=== PATIENT | female | born 1970 | race Caucasian/White ===

== ENCOUNTER 2020-02-26 11:45 | Outpatient (CLI) | payer OTHER, SELFPAY ==
--- NOTE | ~2020-02-26 | XR_ITS ---
EXAMINATION: XR elbow LT min 3V EXAM DATE: 02/26/2020 12:17 INDICATION: Left arm pain. TECHNIQUE: Left elbow frontal, lateral with flexion, and oblique projections obtained and reviewed. There is no prior study for comparison. FINDINGS: Left elbow anterior humeral line intact. Joint space is uniform. There are no acute frac tures or dislocations identified. There is no subcutaneous gas. The soft tissue is unremarkable. There are no radiopaque foreign bodies. IMPRESSION: 1. Unremarkable XR elbow LT min 3V exam. Reviewed, dictated and finalized at location B. ORK TECHNICAL ANALYST
--- NOTE | ~2020-02-26 | XR_ITS ---
EXAMINATION: XR shoulder LT min 2V DATE: 02/26/2020 12:17 INDICATION: Left shoulder pain. TECHNIQUE: 4 views of left shoulder were obtained. COMPARISON: Left shoulder radiographs 12/17/2017 FINDINGS: Bone alignment is normal. No fracture. Glenohumeral joint is normal. There is mild acromioc lavicular joint osteoarthrosis. IMPRESSION: 1. Mild left acromioclavicular joint osteoarthritis. Reviewed, dictated and finalized at location A. ER HAND
== END 2020-02-26 11:46 | disposition home or self-care (01) ==
LOC: ANHIMG 11:51
PROVIDERS: PCP Family Medicine; Visit Provider Physician Assistant
DX: M25.522 Pain in left elbow (principal); M19.012 Primary osteoarthritis, left shoulder; M32.9 Systemic lupus erythematosus, unspecified
CPT/HCPCS: 73030; 73080

== ENCOUNTER 2020-12-20 08:09 | Outpatient (CLI) | payer OTHER, SELFPAY ==
--- NOTE | ~2020-12-20 | MM_ITS ---
EXAMINATION: MM screening raymond BI w akilah HISTORY: Screening TECHNIQUE: Craniocaudal and mediolateral oblique 3-D tomosynthesis images were obtained and synthetic 2-D images were generated. CAD analysis was submitted and interpreted. COMPARISON: Comparison to multiple prior studies sequentially, with oldest reviewed study dated 01/05. BREAST PARENCHYMAL COMPOSITION: There are scattered areas of fibroglandular density. FINDINGS: There is no evidence of suspicious mass, calcification, or architectural distortion to sugg est malignancy in either breast. There has been no suspicious interval change. IMPRESSION: 1. No mammographic evidence of malignancy. 2. Recommend routine screening mammography in one year. BI-RADS Category 1: Negative Reviewed, dictated and finalized at location A.
== END 2020-12-20 08:10 | disposition home or self-care (01) ==
PROVIDERS: PCP Family Medicine; Visit Provider Obstetrics & Gynecology
DX: Z12.31 Encounter for screening mammogram for malignant neoplasm of breast (principal)
CPT/HCPCS: 77063; 77067

== ENCOUNTER → 2021-04-19 08:18 | Outpatient (CLI) | payer OTHER, SELFPAY ==
[2021-04-19 17:25] LABS: Influenza A QL RT-PCR Negative (Negative); Influenza B QL RT-PCR Negative (Negative); SARS-CoV-2 RNA PCR Positive
== END ==
PROVIDERS: PCP Family Medicine; Visit Provider Physician Assistant
DX: U07.1 COVID-19 (principal)
CPT/HCPCS: 87502; 87804; C9803; U0003; U0005

== ENCOUNTER 2021-09-28 10:39 | Emergency (ER) | payer OTHER, SELFPAY ==
[2021-09-28 10:50] VITALS: BP 147/64; PULSE 81; RESP 16; TEMP 36.3; O2SAT 99
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
== END 2021-09-28 11:07 | disposition home or self-care (01) ==
PROVIDERS: Emergency Provider Nurse Practitioner Family; PCP Family Medicine
DX: S05.02XA Injury of conjunctiva and corneal abrasion without foreign body, left eye, initial encounter (principal); W54.8XXA Other contact with dog, initial encounter; I10 Essential (primary) hypertension; J45.909 Unspecified asthma, uncomplicated; E11.9 Type 2 diabetes mellitus without complications; M32.9 Systemic lupus erythematosus, unspecified
CPT/HCPCS: 99213; A9270; G0463

== ENCOUNTER 2022-03-13 01:55 | Day surgery (SDC) | payer OTHER, SELFPAY ==
[2022-03-03 16:04] VITALS: BMI 27.2
[2022-03-13 11:23] VITALS: BP 138/68; PULSE 77; RESP 18; TEMP 36.2; O2SAT 100; BMI 27.0
[2022-03-13 11:42] LABS: Glucose Point of Care 91 mg/dl (65-105)
[2022-03-13] MEDS: LACTATED RINGERS 1,000 ML 150 ML IV CONT (11:43)
--- NOTE | 2022-03-13 11:45 | PM.HPGS ---
History of Present Illness History of Present Illness Consent: Risks, benefits, and alternatives have been discussed and questions answered. Patient agrees to proceed with procedure. Chief complaint: neoplasm screening, gerd Narrative: Mayda Petty is a 52 year old female Presents for colonoscopy and EGD. Patient desires neoplasia screening because of her age. Current weight appetite bowel movements are normal. She presents for neoplasia screening colonoscopy. Patient gives a long history of acid reflux disease and heartburn. She previously was followed by Dr. De Jesus. Has had several endoscopies many years ago. She was told that she had esophageal erosions. She has been maintained on Protonix 40mg p.o. daily or equivalent medications in the past. In general this is helped alleviate her symptoms however for the last 5 months has had substernal heartburn despite taking Protonix. Patient denies any dysphagia or weight loss. She has had no bleeding. Family history noncontributory. Review of Systems Review of Systems: Review of systems noncontributory. [facility] Past Medical History Medical History Obesity Family History Family History Father Diabetes mellitus Hypertension Family history of coronary artery disease Mother Diabetes mellitus Social History Social History Smoking status: Never smoker Second hand tobacco smoke exposure: No Alcohol intake: current Drinks per week: 1 Alcohol use details: rare Substance use: never Substance use type: does not use Living arrangements: with family Gender identity (if verbalized by the patient): Female Sexual Orientation (if Verbalized by the Patient): Straight or Heterosexual Spiritual care concerns: No Meds Home Medications and Allergies Home Medications Medication Instructions Recorded Confirmed Type azathioprine 50 mg tablet 50 mg PO BID 06/19/19 03/03/22 History hydroxychloroquine 200 mg tablet 200 mg PO BID 06/19/19 03/03/22 History fluticasone propionate 50 1 spray intranasal DAILY #18.2 mL 08/24/19 03/03/22 Rx mcg/actuation nasal spray,suspension albuterol sulfate 90 mcg/actuation 2 puff inhalation Q4H PRN 03/03/21 03/03/22 Rx aerosol inhaler (ProAir HFA) shortness of breath or wheezing #18 grams metformin 1,000 mg tablet 1,000 mg PO BID #180 tabs 06/04/21 03/03/22 Rx blood sugar diagnostic (Blood #100 ea 07/23/21 02/05/22 Rx Glucose Test strips) blood-glucose meter #1 ea 07/23/21 02/05/22 Rx lancets #200 ea 07/23/21 02/05/22 Rx albuterol sulfate 2.5 mg/3 mL 2.5 mg (3 mL) inhalation Q6H PRN 08/13/21 03/03/22 Rx (0.083 %) solution for nebulization shortness of breath or wheezing #180 mL pen needle, diabetic 29 gauge x #100 ea 08/13/21 02/05/22 Rx 1/2 (BD Ultra-Fine Original Pen Needle) montelukast 10 mg tablet 10 mg PO QPM #90 tabs 12/24/21 03/03/22 Rx semaglutide 1 mg/dose (4 mg/3 mL) 1 mg (0.75 mL) subcut WEEKLY #3 mL 12/24/21 03/03/22 Rx subcutaneous pen injector sodium,potassium,mag sulfates 17.5 See Rx Instructions PO .COMPLEX 02/16/22 Rx gram-3.13 gram-1.6 gram oral soln #354 mL (Suprep Bowel Prep Kit) losartan 25 mg tablet 12.5 mg PO DAILY #45 tabs 02/20/22 03/03/22 Rx duloxetine 60 mg capsule,delayed 60 mg PO DAILY 03/03/22 03/03/22 History release ondansetron 8 mg disintegrating 8 mg PO Q8H PRN nausea and 03/03/22 Rx tablet vomiting #18 tabs pantoprazole 40 mg tablet,delayed 40 mg PO DAILY 03/03/22 03/03/22 History release Allergies Allergy/AdvReac Type Severity Reaction Status Date / Time levofloxacin Allergy Unknown Hives Verified 03/03/22 16:02 nitrofurantoin Allergy Unknown Unknown Verified 03/03/22 16:02 Vital Signs Vital Signs - 24 hr 03/13/22 11:23 Temperature 97.2 F L Pulse Rate 77 Respirat
--- NOTE | 2022-03-13 12:14 | WPDANESEPPF ---
Anes - Initial Pre Proc Eval Procedure: Operation Date: 03/13/22 12:30 Proposed Procedures p Esophagogastroduodenoscopy&Screen Colon - Corey Burton MD Date/Time: 03/13/22 12:14 Surgeon: Corey Burton MD Pre Op Diagnosis: neoplasm screening, gerd Patient Data Age: 52 Gender: F Height: 1.68 m Weight: 75.9 kg Last Vital Signs Temp 97.2 F L 03/13/22 11:23 Pulse 77 03/13/22 11:23 Resp 18 03/13/22 11:23 BP 138/68 03/13/22 11:23 Pulse Ox 100 03/13/22 11:23 O2 Del Method Room Air 03/13/22 11:23 Allergies Allergy/AdvReac Type Severity Reaction Status Date / Time levofloxacin Allergy Unknown Hives Verified 03/03/22 16:02 nitrofurantoin Allergy Unknown Unknown Verified 03/03/22 16:02 Home Medications Medication Instructions Recorded Confirmed Type azathioprine 50 mg tablet 50 mg PO BID 06/19/19 03/03/22 History hydroxychloroquine 200 mg tablet 200 mg PO BID 06/19/19 03/03/22 History fluticasone propionate 50 1 spray intranasal DAILY #18.2 mL 08/24/19 03/03/22 Rx mcg/actuation nasal spray,suspension albuterol sulfate 90 mcg/actuation 2 puff inhalation Q4H PRN 03/03/21 03/03/22 Rx aerosol inhaler (ProAir HFA) shortness of breath or wheezing #18 grams metformin 1,000 mg tablet 1,000 mg PO BID #180 tabs 06/04/21 03/03/22 Rx blood sugar diagnostic (Blood #100 ea 07/23/21 02/05/22 Rx Glucose Test strips) blood-glucose meter #1 ea 07/23/21 02/05/22 Rx lancets #200 ea 07/23/21 02/05/22 Rx albuterol sulfate 2.5 mg/3 mL 2.5 mg (3 mL) inhalation Q6H PRN 08/13/21 03/03/22 Rx (0.083 %) solution for nebulization shortness of breath or wheezing #180 mL pen needle, diabetic 29 gauge x #100 ea 08/13/21 02/05/22 Rx 1/2 (BD Ultra-Fine Original Pen Needle) montelukast 10 mg tablet 10 mg PO QPM #90 tabs 12/24/21 03/03/22 Rx semaglutide 1 mg/dose (4 mg/3 mL) 1 mg (0.75 mL) subcut WEEKLY #3 mL 12/24/21 03/03/22 Rx subcutaneous pen injector sodium,potassium,mag sulfates 17.5 See Rx Instructions PO .COMPLEX 02/16/22 Rx gram-3.13 gram-1.6 gram oral soln #354 mL (Suprep Bowel Prep Kit) losartan 25 mg tablet 12.5 mg PO DAILY #45 tabs 02/20/22 03/03/22 Rx duloxetine 60 mg capsule,delayed 60 mg PO DAILY 03/03/22 03/03/22 History release ondansetron 8 mg disintegrating 8 mg PO Q8H PRN nausea and 03/03/22 Rx tablet vomiting #18 tabs pantoprazole 40 mg tablet,delayed 40 mg PO DAILY 03/03/22 03/03/22 History release Laboratory Tests 03/13/22 11:40 POC Capillary Glucose 91 mg/dl mg/dl (65-105) Patient hx anesthesia problems: none Family hx anesthesia problems: none Results Review: All pre-operative results and documents have been reviewed as part of the pre-operative evaluation. [facility] Past Medical History Medical History Obesity Family History Family History Father Diabetes mellitus Hypertension Family history of coronary artery disease Mother Diabetes mellitus Social History Social History Smoking status: Never smoker Second hand tobacco smoke exposure: No Alcohol intake: current Drinks per week: 1 Alcohol use details: rare Substance use: never Substance use type: does not use Living arrangements: with family Gender identity (if verbalized by the patient): Female Sexual Orientation (if Verbalized by the Patient): Straight or Heterosexual Spiritual care concerns: No Anes - Eval Final PreProcedure Day of Procedure 03/13/22 12:14 Patient weight: normal Heart: regular rate and rhythm Lungs: clear to auscultation Airway: Mallampati scale class II Neurological: alert and oriented Last oral intake: >/= 8 hours ASA classification: II Emergent: no Anesthetic plan: proceed Anesthesia type and monitoring: general GIVS and standard monitoring
[2022-03-13] MEDS: SIMETHICONE ORAL SUSPENSION 20 MG/0.3 ML 30 ML BOTTLE 0.6 ML IRRIGATION (12:48)
--- NOTE | 2022-03-13 12:54 | SUR.OPER ---
EGD started at 1234 and ended at 1236. Colonoscopy started at 1243 and ended at 1253.
[2022-03-13 12:59] VITALS: BP 120/66; PULSE 91; RESP 22; O2SAT 100
[2022-03-13 13:09] VITALS: BP 135/79; PULSE 82; RESP 20; O2SAT 99
[2022-03-13 13:19] VITALS: BP 135/81; PULSE 68; RESP 20; O2SAT 100
== END 2022-03-13 13:27 | disposition home or self-care (01) ==
PROVIDERS: PCP Family Medicine; Visit Provider Internal Medicine Gastroenterology
PROC: 0DJ08ZZ Inspection of Upper Intestinal Tract, Via Natural or Artificial Opening Endoscopic (ICD-10-PCS; CPT 43235; principal; 2022-03-13 12:30)
DX: Z12.11 Encounter for screening for malignant neoplasm of colon (principal); K64.8 Other hemorrhoids; K21.9 Gastro-esophageal reflux disease without esophagitis
CPT/HCPCS: 43239; 45378; 82948; 87081; J2704; J7120

== ENCOUNTER 2022-08-27 17:53 | Emergency (ER) | payer OTHER, SELFPAY ==
[2022-08-27 18:01] VITALS: BP 159/73; PULSE 90; RESP 16; TEMP 37.3; O2SAT 100
[2022-08-27 18:03] VITALS: BP 159/73; PULSE 90; RESP 16; TEMP 37.3; O2SAT 100
--- NOTE | 2022-08-27 18:25 | ED.SKABFB ---
HPI - Skin/Abscess/Foreign Bdy General Chief complaint: Skin/Abscess/Foreign Body Stated complaint: Insect stuck under skin on upper left back Source: patient and RN notes reviewed History of Present Illness HPI narrative: 52 year female presents to urgent care with complaints of a tick bite to her left upper back. Patient is concerned that a tick could still be in her skin. Patient states they noticed this take about 30 minutes prior to arrival. Patient's removed the tick TOBACCO DIPPER, which pt brought in. Pt has no other complaints. Related Data Home Medications Medication Instructions Recorded Confirmed azathioprine 50 mg tablet 50 mg PO BID 06/19/19 08/27/22 hydroxychloroquine 200 mg tablet 200 mg PO BID 06/19/19 08/27/22 duloxetine 60 mg capsule,delayed 60 mg PO DAILY 03/03/22 08/27/22 release pantoprazole 40 mg tablet,delayed 40 mg PO DAILY 03/03/22 08/27/22 release Allergies Allergy/AdvReac Type Severity Reaction Status Date / Time levofloxacin Allergy Intermediate Hives Verified 08/27/22 18:01 nitrofurantoin Allergy Intermediate Rash Verified 08/27/22 18:01 Review of Systems Review of Systems: CONSTITUTIONAL: Denies fever, chills, or sweats. EYES: Denies visual changes, redness, or discharge. ENT: Denies otalgia and sore throat CARDIOVASCULAR: Denies chest pain, palpitations, or edema. RESPIRATORY: Denies cough or dyspnea. GASTROINTESTINAL: Denies abdominal pain, nausea, vomiting, or diarrhea. GENITOURINARY: Denies dysuria or hematuria. SKIN: tick bite to left upper back MUSCULOSKELETAL: Denies back pain, joint pain, or myalgia. NEUROLOGIC: Denies headache, numbness, or weakness. Pertinent positives per HPI. [facility] Past Medical History Medical History Obesity Family History Family History Father Diabetes mellitus Hypertension Family history of coronary artery disease Mother Diabetes mellitus Social History Social History (Updated 03/23/22 @ 15:01 by Thuy Castro) Smoking status: Never smoker Second hand tobacco smoke exposure: No Alcohol intake: current Drinks per week: 1 Alcohol use details: rare Substance use: never Substance use type: does not use Living arrangements: with family Occupation/Education: occupation Gender identity (if verbalized by the patient): Female Sexual Orientation (if Verbalized by the Patient): Straight or Heterosexual Spiritual care concerns: No Comments At the time of my signature, I reviewed and agree with the nursing past medical, surgical, social, and family history. There is no relevant family history pertinent to the patient complaint. Exam Narrative: GENERAL: This is a well-nourished, well-developed patient, in no apparent distress. HEAD: normocephalic, atraumatic. EYES: Sclera clear/white. Vision is grossly intact. EARS: External ears normal, auditory canals clear and without drainage. Hearing grossly intact. NOSE: External nose normal with no obvious nasal discharge, nares without redness, no rhinorrhea. THROAT: Mucous membranes moist, posterior pharynx clear. NECK: Neck supple, non-tender without lymphadenopathy, masses or thyromegaly. CARDIOVASCULAR: Regular rate RESPIRATORY: No respiratory distress SKIN: 1 cm area of erythremic scab to left upper back NEURO: awake, alert, and oriented to person, place and time. There were no obvious focal neurologic abnormalities. BACK: Nontender without deformity or crepitance. No flank tenderness. Course Course Level of Care: Express Care Visit Vital Signs Vital signs: Vital Signs Temperature 99.1 F 08/27/22 18:01 Pulse Rate 90 08/27/22 18:01 Respiratory Rate 16 08/27/22 18:01 Blood Pressure 159/73 H 08/27/22 18:01 Pulse Oximetry 100 08/27/22 18:01 Oxygen Delivery Room Air 08/27/22 18:01 Temperature 99.1 F 08/27/22
== END 2022-08-27 18:32 | disposition home or self-care (01) ==
PROVIDERS: Emergency Provider Nurse Practitioner Family; PCP Family Medicine
DX: S20.462A Insect bite (nonvenomous) of left back wall of thorax, initial encounter (principal); W57.XXXA Bitten or stung by nonvenomous insect and other nonvenomous arthropods, initial encounter; E66.9 Obesity, unspecified; Z68.28 Body mass index [BMI] 28.0-28.9, adult
CPT/HCPCS: 99213; G0463

== ENCOUNTER 2023-02-10 15:41 | Outpatient (CLI) | payer OTHER, SELFPAY ==
--- NOTE | ~2023-02-10 | MM_ITS ---
EXAMINATION: MM screening raymond BI w akilah HISTORY: Screening TECHNIQUE: Craniocaudal and mediolateral oblique 3-D tomosynthesis images were obtained and synthetic 2-D images were generated. CAD analysis was submitted and interpreted. COMPARISON: Comparison to multiple prior studies sequentially, with oldest reviewed study dated 08/22. BREAST PARENCHYMAL COMPOSITION: The breasts are almost entirely fatty. FINDINGS: There is no evidence of suspicious mass, calcification, or architectural distortion to sugg est malignancy in either breast. There has been no suspicious interval change. IMPRESSION: 1. No mammographic evidence of malignancy. 2. Recommend routine screening mammography in one year. BI-RADS Category 1: Negative Reviewed, dictated and finalized at location A. NICAL MAINTENANCE TECHNICIAN
== END 2023-02-10 15:42 | disposition home or self-care (01) ==
LOC: ANHIMG 15:43
PROVIDERS: PCP Family Medicine; Visit Provider Obstetrics & Gynecology
DX: Z12.31 Encounter for screening mammogram for malignant neoplasm of breast (principal)
CPT/HCPCS: 77063; 77067

== ENCOUNTER 2023-03-23 17:06 | Outpatient (CLI) | payer OTHER, SELFPAY ==
[2023-03-23 21:45] LABS: Appearance Urine Clear (Clear); Bilirubin Urine Negative (Negative); Blood Urine Negative (Negative); Color Urine Yellow (Yellow); Glucose Urine UA Negative (Negative); Ketones Urine Negative (Negative); Leukocyte Esterase Ur Negative LEU/UL (NEGATIVE); Nitrate Urine Negative (Negative); Protein Urine Negative (Negative); Specific Grav Ur 1.003 (1.001-1.035); Urobilinogen Urine 0.2 mg/dL (<2.0); pH Urine 6.5 (5.0-9.0)
[2023-03-23 21:51] LABS: Add Urine Microscopic? NO
== END 2023-03-23 17:07 | disposition home or self-care (01) ==
LOC: ANHLAB 17:07
PROVIDERS: PCP Family Medicine; Visit Provider Physician Assistant
DX: N39.0 Urinary tract infection, site not specified (principal); R30.0 Dysuria
CPT/HCPCS: 81003; 87086; 87088

== ENCOUNTER 2024-10-17 13:54 | Outpatient (CLI) | payer OTHER, SELFPAY ==
--- OUTSIDE RECORDS SUMMARY | 2024-10-17 14:01 | XMS_ITS | Clinical Summary ---
Author Organization [facility] Address [address] [place] [address] Phone Care Team Providers Care Field Appraiser Name Role Phone Mitesh Rincon MD Primary Care Provider Allergies Active Allergy Reactions Criticality Noted Date Comments Levofloxacin Hives High 02/09/2019 Medications metFORMIN (GLUCOPHAGE) 1,000 mg tablet Take 1,000 mg by mouth 2 times daily with meals. Active DULoxetine (CYMBALTA) 60 mg Capsule, Delayed Release(E.C.) Take 60 mg by mouth daily. Active hydroxychloroqu ine (PLAQUENIL) 200 mg tablet Take 200 mg by mouth 2 times daily. Active losartan (COZAAR) 25 mg tablet Take 25 mg by mouth daily. Taking 1/2 tab Active montelukast (SINGULAIR) 10 mg tablet Take 10 mg by mouth daily. Active ondansetron (ZOFRAN) 8 mg Tablet Take 8 mg by mouth every 8 hours as needed for Nausea/Emesis. Active pantoprazole (PROTONIX) 40 mg Tablet, Delayed Release (E.C.) Take 40 mg by mouth daily. Active fluticasone propionate (FLONASE) 50 mcg/spray [place], Suspension nasal inhaler Administer 50 mcg in each nostril daily. 8 Active albuterol HFA 90 mcg inhaler Take 2 Puffs by inhalation every 6 hours as needed for Shortness of Breath. Active azaTHIOprine (IMURAN) 50 mg tablet Take 1 Tablet by mouth 2 times daily. 60 Tablet 1 02/12/2019 12:49 PM TECHNICAL SERVICES ASSISTANT 9 Active neomycin-bacitr acin-polymyxin (NEOSPORIN, UWF-XIO-NBFIR,) 3.5mg-400 unit- 5,000 unit/gram Ointment Apply to affected area 2 times daily for 7 days. 30 Gram 1 02/12/2019 12:49 PM TECHNICAL SERVICES ASSISTANT 9 Active Active Problems Problem Noted Date Diagnosed Date Fever of unknown origin (FUO) 02/10/2019 Systemic lupus erythematosus (SLE) inhibitor 11/2018 Pleuritic chest pain 02/10/2019 HTN (hypertension), benign 02/10/2019 Controlled type 2 diabetes m ellitus without complication, without long-term current use of insulin Exacerbation of systemic lupus Immunizations Immunization Administration Dates Next Due (PNEUMOVAX 23)(50 YRS UP) PN EUMOCOCCAL POLYSACCHARIDE (PPV23) 0.5 ML, IM 02/12/2019 INFLUENZA VACCINE QUADRIVALENT 6 MOS UP PF IM Social History Tobacco Use Types Packs/Day Years Used Date Smoking Tobacco: Never Smokeless Tobacco: Never Alcohol Use Standard Drinks/Week Comments Yes 0 (1 standard drink = 0.6 oz pur e alcohol) Comments No Sex and Gender Information Value Date Recorded Sex Assigned at Not on file Legal Sex Female 2:14 PM TECHNICAL SERVICES ASSISTANT Gender Identity Not on file Sexual Orientation Not on file Last Filed Vital Signs Vital Sign Reading Time Taken Comments Blood Pressure 154/81 02/12/2019 8:47 AM TECHNICAL SERVICES ASSISTANT Pulse 86 02/12/2019 8:47 AM TECHNICAL SERVICES ASSISTANT Temperature 36.9 C (98.4 F) 02/12/2019 8:47 AM TECHNICAL SERVICES ASSISTANT Respiratory Rate 18 02/12/2019 8:47 AM TECHNICAL SERVICES ASSISTANT Oxygen Saturation 100% 02/12/2019 8:47 AM TECHNICAL SERVICES ASSISTANT Inhaled Oxygen Concentration - - Weight 85.3 kg (188 lb) 02/09/2019 10:53 PM TECHNICAL SERVICES ASSISTANT Height 170.2 cm (5' 7) 02/09/2019 10:53 PM TECHNICAL SERVICES ASSISTANT Body Mass Index 29.44 02/09/2019 10:53 PM TECHNICAL SERVICES ASSISTANT Plan of Treatment Health Maintenance Due Date Last Done Comments DIABETES ANNUAL FOOT EXAM 01/13/1990 DIABETES ANNUAL RETINAL EXAM 01/13/1990 DIABETES HBA1C Q 6 MONTHS 01/13/1990 DIABETES MICROALBUMIN ANNUAL SCREEN 01/13/1990 LDL CHOLESTEROL ANNUAL 01/13/1990 DTAP/TDAP/TD VACCINES (1 - Tdap) 01/13/1991 HEPATITIS B VACCINES (1 of 3 - 19+ 3-dose series) 01/03 ZOSTER VACCINE (1 of 2) 01/13/1991 HPV/Cotest (21-29) 01/13/1993 CERVICAL CANCER SCREENING 01/13/2002 HPV/Cotest (30-65) 01/13/2002 PAP SMEAR 01/13/2002 BREAST CANCER SCREENING 2012 COLORECTAL SCREENING 01/13/2017 Colorectal Cancer Screening 01/13/2017 FIT-DNA Q 3 years 01/13/2017 FIT/FOBT Q 1 year 01/13/2017 Flex Sig/CT Colonography Q 5 years 01/13/2017 INFLUENZA VACCINE (#1) 2024 02/11/2019 Insurance PolicardO OPEN ACCESS RX [facility] [employer] Care Teams Field Appraiser Relationship Specialty Start Date End Date Mitesh Rincon MD [address] [place] [phone] PCP - General Family Practice 02/09/19
--- OUTSIDE RECORDS SUMMARY | 2024-10-17 14:01 | XMS_ITS | Clinical Summary ---
Author Organization [facility] [address] Address [address] [place] [address] Phone Care Team Providers Care Astronomy Professor Name Role Phone Mitesh Rincon MD Primary Care Provider Gregorio Martin MD Unavailable [phone] Allergies Active Allergy Reactions Criticality Noted Date Comments Levofloxacin Unknown,Hives High 06/15/2017 Reaction: Hives, Nitrofurantoin Unknown Reaction: Unknown, Medications albuterol (ISABEL CONNELLY N) 2.5 mg /3 mL (0.083 %) nebulizer solution 05/16/[address] (CYMBALTA) 60 mg capsule Take 90 mg by mouth daily 06/04/19 18 Active FLOVENT HFA 110 mcg/actuation inhaler 05/21/19 18 Active fluticasone (FLONASE) 50 mcg/actuation nasal spray 05/21/19 18 Active montelukast (SINGULAIR) 10 mg tablet 04/03/20 17 Active traMADol (ULTRAM) 50 mg tablet 0 05/03/19 18 Active losartan (COZAAR) 25 mg tablet Take 0.5 tablets (12.5 mg total) by mouth daily Half tablet daily Active ALPRAZolam (XANAX) 0.5 mg tablet 0 06/28/19 19 Active lancets 33 gauge misc Rx: OneTouch Delica Lancets 33G Miscellaneous Active blood glucose diagnostic strip by in vitro route Active sodium chloride 0.9 % solution for nebulization with albuterol 5 mg/mL solution for nebulization 0.6 mg/mL every 4 (four) hours Active omega 7-uoi-adl-fish oil 100-160-1,000 mg capsule 1,000 mg daily Activ e ondansetron ODT (ZOFRAN-ODT) 8 mg disintegrating tablet DISSOLVE 1 TABLET IN MOUTH EVERY 8 HOURS NEEDED FOR NAUSEA AND VOMITING 07/26/[address] (PROTONIX) 40 mg EC tablet Take 1 tablet (40 mg total) by mouth daily 12/23/19 22 Active Ozempic 2 mg/dose (8 mg/3 mL) pen injector injection Inject 4 mg under the skin every 7 days 02/07/20 23 Active azaTHIOprine (IMURAN) 50 mg tablet Take 2 tablets (100 mg total) by mouth 2 (two) times a day 360 tablet 1 05/29/19 25 Active hydroxychloroquine (PLAQUENIL) 200 mg tablet Take 1 tablet (200 mg total) by mouth 2 (two) times a day 180 tablet 1 05/29/19 25 Active Active Problems Problem Noted Date Diagnosed Date Myalgia 08/25/2024 Assessment & Plan (08/25/2024 4:53 PM CDT): She describes a fairly diffuse body pain with allodynia and again has many tender points. Discussed concern for possible fibromyalgia. She does recall having been treated with gabapentin 900 mg tid in the past, this was poorly tolerated due to sedation. She is currently taking duloxetine 90 mg daily for mood. In the future, could consider a trial of Lyrica. Vaccine counseling 11/19/2020 Assessment & Plan (11/19/2020 12:51 PM CDT): Has received two doses of Moderna Covid19 vaccination, recommend that she get a booster to occur 28+ days after the second dose. Right hip pain 08/19/2020 Assessment & Plan (11/19/2020 12:52 PM CDT): R hip pain, suspect greater trochanteric pain syndrome, recommend trial of stretches/exercises, pt does not recall getting handout last time, given today and will monitor response. If not improved, then could consider US steroid injection. Assessment & Plan (08/19/2020 11:18 AM CDT): R hip pain, suspect greater trochanteric pain syndrome, recommend trial of stretches/exercises which pt is eager to pursue, handout given today and will monitor response Bilateral ankle pain 08/19/2020 Assessment & Plan (08/19/2020 11:20 AM CDT): B ankle pain which is felt near the lateral malleolus, non-tender without swelling on exam. Some of this pain sounds more mechanical given worsening with prolonged walking/standing, though there are also inflammatory characteristics with AM stiffness for 2 hours. At this time she does not feel that symptoms are significant enough to warrant anything further. She recently purchased more supportive shoes, she would like to try wearing these and monitor symptoms for now. In the future may consider a foot/ankle ultrasound to assess for inflammatory changes. Left arm pain 02/19/2020 Assessment & Plan (05/27/2020 10:49 AM METER INSTALLER AND REMOVER): Continues to experience intermittent locking of the L shoulder and elbow, now also occurring in the L wrist. XR of the elbow was negative, L shoulder with only mild AC OA. Discussed consideration for referral to PT, however pt declines stating that she has exercises at home that she will work on. If the issue persists/worsens then she will reconsider formal PT. Assessment & Plan (02/19/2020 12:11 PM METER INSTALLER AND REMOVER): Ongoing L shoulder pain and now with intermittent 'locking' of the L shoulder and elbow, pt expresses concern for structural issue. No injury. Exam unremarkable will full passive and active ROM without pain and strength intact. Mild ttp L GH joint. Will obtain XR, discussed with pt that this may be low yield, awaiting findings. Oral abscess 10/09/2019 Assessment & Plan (10/09/2019 12:11 PM CDT): Pt states dx with oral abscess by dentist, taking amoxicillin, planning root canal next week. Encounter for medication monitoring 07/17/2019 Assessment & Plan (08/25/2024 3:02 PM CDT): TPMT 19 Hepatitis negative 2018 Continue routine lab monitoring Maintain routine eye exams throughout the duration of taking hydroxychloroquine Assessment & Plan (05/29/2024 12:40 PM METER INSTALLER AND REMOVER): TPMT 19 Hepatitis negative 2018 Continue routine lab monitoring Maintain routine eye exams throughout the duration of taking hydroxychloroquine Assessment & Plan (02/28/2024 2:42 PM METER INSTALLER AND REMOVER): TPMT 19 Hepatitis negative 2018 Continue routine lab monitoring Maintain routine eye exams throughout the duration of taking hydroxychloroquine Assessment & Plan (11/17/2023 1:11 PM CDT): TPMT 19 Hepatitis negative 2018 Continue routine lab monitoring Maintain routine eye exams throughout the duration of taking hydroxychloroquine Assessment & Plan (08/19/2023 12:35 PM CDT): TPMT 19 Hepatitis negative 2018 Continue routine lab monitoring Maintain routine eye exams throughout the duration of taking hydroxychloroquine Assessment & Plan (07/20/2023 2:34 PM CDT): TPMT 19 Hepatitis negative 2018 Continue routine lab monitoring Maintain routine eye exams throughout the duration of taking hydroxychloroquine Assessment & Plan (04/19/2023 3:53 PM METER INSTALLER AND REMOVER): TPMT 19 Hepatitis negative 2018 Continue routine lab monitoring Maintain routine eye exams throughout the duration of taking hydroxychloroquine Assessment & Plan (02/19/2023 4:13 PM METER INSTALLER AND REMOVER): TPMT 19 Hepatitis negative 2018 Continue routine lab monitoring Maintain routine eye exams throughout the duration of taking hydroxychloroquine Assessment & Plan (11/05/2022 9:08 AM CDT): TPMT 19 Hepatitis negative 2018 Continue routine lab monitoring Maintain routine eye exams throughout the duration of taking hydroxychloroquine Assessment & Plan (08/03/2022 12:57 PM CDT): TPMT 19 Hepatitis negative 2018 Continue routine lab monitoring Maintain routine eye exams throughout the duration of taking hydroxychloroquine Assessment & Plan (05/11/2022 2:33 PM METER INSTALLER AND REMOVER): TPMT 19 Hepatitis negative 2018 Continue routine lab monitoring Maintain routine eye exams throughout the duration of taking hydroxychloroquine Assessment & Plan (02/09/2022 3:58 PM METER INSTALLER AND REMOVER): TPMT 19 Hepatitis negative 2018 Continue routine lab monitoring Maintain routine eye exams throughout the duration of taking hydroxychloroquine utd flu shot Assessment & Plan (11/10/2021 11:31 AM CDT): TPMT 19 Hepatitis negative 2018 Continue routine lab monitoring Maintain routine eye exams throughout the duration of taking hydroxychloroquine Assessment & Plan (08/11/2021 10:16 AM CDT): TPMT 19 Hepatitis negative 2018 Continue routine lab monitoring Maintain routine eye exams throughout the duration of taking hydroxychloroquine Assessment & Plan (05/09/2021 1:33 PM METER INSTALLER AND REMOVER): TPMT 19 Hepatitis negative 2018 Continue routine lab monitoring Maintain routine eye exams throughout the duration of taking hydroxychloroquine Assessment & Plan (02/07/2021 4:01 PM CDT): TPMT 19 Hepatitis negative 2018 Continue routine lab monitoring Maintain routine eye exams throughout the duration of taking hydroxychloroquine Assessment & Plan (10/23/2020 3:57 PM CDT): TPMT 19 Hepatitis negative 2018 Continue routine lab monitoring Maintain routine eye exams throughout the duration of taking hydroxychloroquine Assessment & Plan (08/19/2020 10:35 AM CDT): TPMT 19 Hepatitis negative 2018 Continue routine lab monitoring Maintain routine eye exams throughout the duration of taking hydroxychloroquine Assessment & Plan (05/24/2020 4:30 PM METER INSTALLER AND REMOVER): TPMT 19 Hepatitis negative 2018 Continue routine lab monitoring Maintain routine eye exams throughout the duration of taking hydroxychloroquine Assessment & Plan (02/19/2020 12:12 PM METER INSTALLER AND REMOVER): TPMT 19 Hepatitis negative 2018 Continue routine lab monitoring Maintain routine eye exams throughout the duration of taking hydroxychloroquine Assessment & Plan (01/08/2020 8:35 AM CDT): TPMT 19 Hepatitis negative 2018 Continue routine lab monitoring Maintain routine eye exams throughout the duration of taking hydroxychloroquine Assessment & Plan (10/09/2019 8:52 AM CDT): TPMT 19 Hepatitis negative 2018 Continue routine lab monitoring Maintain routine eye exams throughout the duration of taking hydroxychloroquine Assessment & Plan (07/17/2019 8:39 AM CDT): TPMT 19 Hepatitis negative 2018 Continue routine lab monitoring Maintain routine eye exams throughout the duration of taking hydroxychloroquine FUO (fever of unknown origin) 02/09/2019 Assessment & Plan (03/09/2019 10:39 AM METER INSTALLER AND REMOVER): Resolved. On prednisone taper, as above. Assessment & Plan (02/09/2019 3:00 PM METER INSTALLER AND REMOVER): Pt continues to report fevers at home with a tmax yesterday of 102. She is afebrile in our office with a temp of 99.5*F. She continues to take Tylenol q4hr. She appears acutely ill in the office today with rigors and was found to have a mildly elevated WBC count with a markedly elevated CRP of 199 on labs this week. At this time ssx felt unlikely 2/2 lupus, question underlying infection and given ongoing FUO with ill appearance and lab findings discussed recommendation for CT chest/abdomen/pelvis, likely would not be able to arrange this until next week. Pt feels too ill at this time, would like to take pt to [facility] for a more expeditious evaluation. Dr. Martin spoke with central nurse at [facility], informed of patient's name/ and attempted to provide pertinent history, they are aware that she is en route and will await her arrival. Indicated that Dr. Martin would be updated regarding pt's status. Systemic lupus erythematosus 07/06/2017 Overview (09/07/2024): AVISE (06/15/17): -2.3; ELIGIO neg; no other autoantibodies AVISE 12/2017: negative AVISE (02/06/19): negative US right hand/wrist (06/28/17): Mild synovitis with effusions, synovial thickening and power doppler. Findings limited to the long view of the wrist and radial/scaphoid joint with grade 1 effusions and grade 1 power doppler. Synovial thickening seen in the wrist, 2nd MCP joint, and 2nd and 3rd PIP joints. US right hand/wrist (03/02/23): Grade 1 effusion in the 3rd PIP joint. Moderate synovial thickening in the 3rd PIP joint. A mildly enlarged median nerve at 0.12 cm2 is identified. US right hand/wrist (09/07/24): 1. Moderate synovial thickening in the 2nd and 3rd PIP joints. 2. No significant joint effusions or power doppler activity. 3. A mildy enlarged median nerve at 0.12 cm2 is identified. 4. In comparison to previous US of the right hand/wrist from 03/02/23, there is resolution of the grade 1 effusion previously seen in the 3rd PIP joint. Otherwise, there is minimal change. Has had positive ELIGIO in past several years ago per pt although I do not have for review. I am not convinced has lupus based on negative serology and ultrasound findings although clinically looks compatible: Has subjective alopecia, fevers, rash in malar distribution as well as on arms, legs with photosensitivity, joint pain, raynauds in fingers with cold exposure, previous pleurisy, occasional nasal lesions, fatigue. Had pic of significant malar erythema/rash Joint pain much improved with prednisone 30 mg daily tapered to off Previous saw Dr. Rosado on 1 occasion - no diagnosis made HCQ started 07/06/17 AZA added 01/09/19 Assessment & Plan (08/25/2024 4:50 PM CDT): Cdai = 12 with minimal swelling of two joints. Overall have a lower suspicion that many of her recent symptoms are a reflection of active lupus. The description of her hand/foot pain though does sound somewhat inflammatory, she does not feel that these are severe enough at present to warrant additional steroids (was given a steroid shot 05/2024). At this time recommend repeating lupus labs today and obtaining a repeat hand/wrist US to reassess. In the meantime will continue hydroxychloroquine 200 mg bid and azathioprine 100 mg bid. She will be called with lab/US findings and recommendations. If no changes to medications are made, will plan for routine follow up in 3 months. Assessment & Plan (05/29/2024 4:57 PM METER INSTALLER AND REMOVER): Moderate cdai, notable increased in number of tender and swollen joints since last visit. Reports that she has been flaring for 3 weeks. She is hoping for a steroid shot today. Due to burden of disease will give patient a triamcinolone injection. Patient made aware of SE of steroids including but not limited to HTN, increased blood glucose, cataracts, glaucoma, AVN, and osteoporosis with salvage determiner use. Continue hydroxychloroquine 200 mg bid and azathioprine 100 mg bid. Check labs today. Follow up in 3 months or sooner as needed should flare persist/recur. Assessment & Plan (02/28/2024 4:50 PM METER INSTALLER AND REMOVER): Cdai in remission. Overall remains stable. Check labs today for monitoring. Continue hydroxychloroquine 200 mg bid and azathioprine 100 mg bid. Follow up in 3 months or sooner as needed. Assessment & Plan (11/18/2023 9:55 AM CDT): Cdai in remission. Overall remains improved with increased azathioprine dose. Check labs today for monitoring. Continue hydroxychloroquine 200 mg bid and azathioprine 100 mg bid. Follow up in 3 months or sooner as needed. Assessment & Plan (08/19/2023 4:57 PM CDT): Low cdai. Overall feels improved with increased azathioprine dose. Check labs today for monitoring. Continue hydroxychloroquine 200 mg bid and azathioprine 100 mg bid. Follow up in 3 months or sooner as needed. Assessment & Plan (07/20/2023 3:42 PM CDT): Cdai = 11.5 with questionable synovitis of two joints. Repeat hand ultrasound 03/02/2023 was reassuring without significant active inflammation and her lupus activity markers on our labs have been normal; overall this is all reassuring that she appears stable from an autoimmune standpoint. However, she continues to note increased joint pain with stiffness that is worse in the morning for 1 hour. Today she notes new cervical LAD (resolved on exam today) in the last month with midfacial erythema (not sparing the nasolabial fold), erythema of her forearms, and rash on BLE (now resolved), which are not clearly related to lupus. However, in light of her persistent symptoms and her prior good response to azathioprine dose increase, discussed that we could try increasing to 100 mg bid and monitor response, she is hopeful to try this. Continue hydroxychloroquine 200 mg bid. Labs today as below. Follow up in 4 weeks or sooner as needed. Assessment & Plan (04/20/2023 3:48 PM METER INSTALLER AND REMOVER): Low cdai. Repeat hand ultrasound 03/02/2023 was reassuring without significant active inflammation and her lupus activity markers on our labs have been normal; overall this is all reassuring that she appears stable from an autoimmune standpoint. Given that stability could not explain gross hematuria, will recheck a UA today and if she still has hematuria then recommend return to urology for evaluation. Will otherwise continue azathioprine 100 mg qAM and 50 mg qPM and hydroxychloroquine 200 mg bid. Labs today as below. Follow up in 3 months or sooner as needed. Assessment & Plan (02/19/2023 4:13 PM METER INSTALLER AND REMOVER): High cdai. Discussed that over the last couple years she seems to be in a cycle of flaring, getting an IM triamcinolone, and then doing well for several months until the process repeats; reviewed that my concern is that this is a reflection that her baseline regimen is not working adequately to manage her disease. Discussed obtaining a new baseline hand ultrasound, last done in 2018, and after this is completed then could give IM triamcinolone. Pending US findings will discuss change in treatment, in the meantime continue azathioprine 100 mg qAM and 50 mg qPM and hydroxychloroquine 200 mg bid. Labs today as below. Follow up timing to be determined pending US findings. Assessment & Plan (11/05/2022 10:15 AM CDT): Low cdai. Will continue azathioprine 100 mg qAM and 50 mg qPM and hydroxychloroquine 200 mg bid. Labs today as below. Plan for follow up in 3 months or sooner as needed. Assessment & Plan (08/03/2022 1:34 PM CDT): High cdai, flaring. Discussed that based upon her flare last fall requiring IM triamcinolone, that she didn't feel at baseline in May, and now flaring again - have concern that her maintenance regimen is no longer working adequately to control her disease. Discussed that we likely need to escalate treatment to regain tighter control. However, she feels that current flare is a reflection of increased life stress which will soon diminish again and she defers escalating treatment. Due to burden of disease will give patient a triamcinolone injection. Patient made aware of SE of steroids including but not limited to HTN, increased blood glucose, cataracts, glaucoma, AVN, and osteoporosis with fpc use. However, if she flares again in the next few months, then will need to escalate treatment which she understands. Otherwise for now will continue azathioprine 100 mg qAM and 50 mg qPM and hydroxychloroquine 200 mg bid. Labs today as below. Plan for follow up in 3 months or sooner as needed. Assessment & Plan (05/11/2022 2:33 PM METER INSTALLER AND REMOVER): Cdai = 13. Slight increase in symptoms and cdai from baseline, though remains significantly improved in comparison to last visit. She attributes much of her joint pain to the weather. At this time she would like to continue with ibuprofen 400 mg once or twice daily prn and reserve steroids for persistence/worsening. Otherwise will continue azathioprine 100 mg qAM and 50 mg qPM and hydroxychloroquine 200 mg bid. Labs today as below. Plan for follow up in 3 months or sooner as needed. Assessment & Plan (02/09/2022 3:58 PM METER INSTALLER AND REMOVER): cdai = 27 Appears to be having a flare today. Has higher CDAI, rash on L arm, and oral ulcer. Symptoms present for several weeks. Offered 100mg IM kenalog due to burden of disease and pt would like to proceed. Last IM steroid was given in 02/23 (1 yr ago) and she did well. Will continue azathioprine 100 mg qAM and 50 mg qPM and hydroxychloroquine 200 mg bid. If she has continued flare then could consider increasing immunosuppressant regimen next. Labs today as below. Maintain routine eye exams. Plan for follow up in 3 months or sooner as needed. Assessment & Plan (11/10/2021 3:46 PM CDT): Low cdai. Will continue azathioprine 100 mg qAM and 50 mg qPM and hydroxychloroquine 200 mg bid. Labs today as below. Maintain routine eye exams. Plan for follow up in 3 months or sooner as needed. Assessment & Plan (08/11/2021 2:53 PM CDT): Moderate cdai. Increased joint pain with increased synovitis and tenderness on exam. Despite the flare, she does not feel that anything additional is warranted at present, she would like to monitor and call if flare persists. Otherwise will continue azathioprine 100 mg qAM and 50 mg qPM and hydroxychloroquine 200 mg bid. Labs today as below. Maintain routine eye exams. Plan for follow up in 3 months or sooner as needed. Assessment & Plan (05/12/2021 9:32 AM METER INSTALLER AND REMOVER): Low cdai. Overall feels improved and stable since last visit. Will continue azathioprine 100 mg qAM and 50 mg qPM and hydroxychloroquine 200 mg bid. Labs today as below. Maintain routine eye exams. Plan for follow up in 3 months or sooner as needed. Assessment & Plan (02/10/2021 9:24 AM METER INSTALLER AND REMOVER): High cdai. Pt reports flare and states that she is 'barely managing' currently and is concerned about being able to function at work. Due to burden of disease will give patient a triamcinolone injection. Patient made aware of SE of steroids including but not limited to HTN, increased blood glucose, cataracts, glaucoma, AVN, and osteoporosis with fpc use. Will continue azathioprine 100 mg qAM and 50 mg qPM and hydroxychloroquine 200 mg bid. Labs today as below. Maintain routine eye exams. Plan for follow up in 3 months or sooner as needed should flare persist. Assessment & Plan (10/23/2020 3:57 PM CDT): Low cdai. Will continue azathioprine 100 mg qAM and 50 mg qPM and hydroxychloroquine 200 mg bid. Labs today as below. Maintain routine eye exams, up to date. Plan for follow up in 3 months or sooner as needed. Assessment & Plan (08/19/2020 11:17 AM CDT): Low cdai. Will continue azathioprine 100 mg qAM and 50 mg qPM and hydroxychloroquine 200 mg bid. Labs today as below. Maintain routine eye exams, up to date. Plan for follow up in 3 months or sooner as needed. Assessment & Plan (05/27/2020 10:50 AM METER INSTALLER AND REMOVER): Low cdai. Will continue azathioprine 100 mg qAM and 50 mg qPM and hydroxychloroquine 200 mg bid. Up to date on labs. Maintain routine eye exams - has appt this week. Plan for follow up in 3 months or sooner as needed. Assessment & Plan (02/19/2020 12:12 PM METER INSTALLER AND REMOVER): Low cdai. Will continue azathioprine 100 mg qAM and 50 mg qPM and hydroxychloroquine 200 mg bid. Up to date on labs. Maintain routine eye exams. Plan for follow up in 3 months or sooner as needed. Assessment & Plan (01/08/2020 9:07 AM CDT): High cdai. Due to burden of disease will give patient a triamcinolone injection. Patient made aware of SE of steroids including but not limited to HTN, increased blood glucose, cataracts, glaucoma, AVN, and osteoporosis with salvage determiner use. At baseline fells well controlled with azathioprine 100 mg qAM and 50 mg qPM and hydroxychloroquine 200 mg bid, will continue. Labs today as below. Plan for follow up in 4 weeks or sooner as needed. Assessment & Plan (10/09/2019 12:12 PM CDT): Low cdai. At baseline fells well controlled with azathioprine 100 mg qAM and 50 mg qPM and hydroxychloroquine 200 mg bid. Has had increased pain and stiffness last two weeks, will monitor. Labs today as below. Plan for follow up in 3 months or sooner as needed. Assessment & Plan (07/17/2019 9:01 AM CDT): Low cdai. Improving with azathioprine 100 mg qAM and 50 mg qPM (TPMT is 19), will continue regimen of this with hydroxychloroquine 200 mg bid. Labs today as below. Plan for follow up in 3 months or sooner as needed. Assessment & Plan (06/12/2019 9:10 AM CDT): Moderate cdai. Pt reports increasing joint complaints since tapering prednisone but otherwise denies current systemic symptoms concerning for lupus. At this time will increase dose of azathioprine to 100 mg qAM and 50 mg qPM (TPMT is 19) and will continue regimen of hydroxychloroquine 200 mg bid. Will try to avoid additional steroids which pt is agreeable to. Labs today as below. Plan for follow up in 4 weeks or sooner as needed. Assessment & Plan (03/09/2019 10:42 AM METER INSTALLER AND REMOVER): Tolerating the addition of azathioprine without complaint. Re: FUO, lupus can cause fevers, though her serologies were unremarkable and she otherwise lacked systemic symptoms concerning for lupus, though no infectious etiology was discovered and inflammatory was favored. Now improved after prednisone taper, down to 20 mg daily, completes two week course of 20 mg in two days after which she will decrease to 15 mg daily for a week, 10 mg daily for a week, then 7.5 mg daily for a week, 5 mg daily for a week, and finally 2.5 mg daily for a week before stopping. To call if symptoms flare again with tapering. Otherwise will continue regimen of hydroxychloroquine 200 mg bid and azathioprine 50 mg bid and allow more time for effect. Plan for follow up in 3 months or sooner as needed. Assessment & Plan (02/09/2019 3:01 PM METER INSTALLER AND REMOVER): Tolerating the addition of azathioprine without complaint. Worsening widespread pain in the last two weeks with intermittent fevers/chills and tachycardia. Evaluation at UC and ED x2 were apparently unremarkable. Lupus can cause fevers, though her serologies have been unremarkable and at present she otherwise lacks systemic symptoms concerning for lupus. Reviewed that the lack of response to the prednisone goes against lupus as the source of her current complaints. Await ED workup as above. Assessment & Plan (02/06/2019 9:47 AM METER INSTALLER AND REMOVER): Tolerating the addition of azathioprine without complaint. Worsening widespread pain in the last two weeks with intermittent fevers/chills and tachycardia. Evaluation at UC and ED x2 were apparently unremarkable. She is afebrile today with a temp of 99.9 and does not appear acutely ill. Lupus can cause fevers, though her serologies have been unremarkable and at present she otherwise lacks systemic symptoms concerning for lupus. Reviewed that hte lack of response to the prednisone goes against lupus as the source of her current complaints. Suspect possible fibromyalgia given her widespread pain and tenderness, she had been told this by other providers in the past and was prescribed Lyrica though ultimately did not take this as it was not covered by insurance. At this time will continue hydroxychloroquine 200 mg bid and increase azathioprine to 50 mg twice daily. Continue routine eye exams to monitor for hydroxychloroquine toxicity. Will obtain labs as below. Follow up in 1 month or sooner as needed. Will consider initiating treatment for fibromyalgia at next visit. Assessment & Plan (01/09/2019 11:00 AM CDT): Given triamcinolone IM in October due to flare with relief for 2 weeks, severe again in the last 2 weeks. Admits today that she no longer feels that hydroxychloroquine is working to control her disease, feels like she did prior to initiating treatment. Will continue hydroxychloroquine 200 mg bid and add azathioprine 50 mg once daily. Pt indicates that she would prefer to try additional oral medication before any SQ/IV meds. Will check TPMT today. Continue routine eye exams to monitor for hydroxychloroquine toxicity. Will obtain labs as below. Follow up in 1 month or sooner as needed. Assessment & Plan (10/10/2018 10:06 AM CDT): Joint pain and stiffness has flared in the last couple weeks. Malar rash continues to flare. Alopecia and Raynaud's improved. Will continue hydroxychloroquine 200 mg bid and zanaflex 2 mg tid prn for her myalgias. Continue routine eye exams to monitor for hydroxychloroquine toxicity. Depending on her clinical progression will consider the addition of benlysta vs azathioprine. Due to burden of disease will give patient a triamcinolone injection. Patient made aware of SE of triamcinolone injection including but not limited to HTN, increase blood glucose and osteopenia with salvage determiner use of steroids. Will obtain labs as below. Follow up in 3 months or sooner as needed. Assessment & Plan (07/07/2018 3:24 PM CDT): Malar rash continues to flare. Alopecia improved. Muscle spasms improved with tizanidine. Under a great deal of stress. Overall she feels fairly stable with current regimen and would prefer not to make any changes. Will continue hydroxychloroquine 200 mg bid and zanaflex 2 mg tid prn for her myalgias. Will obtain labs as below, request recent CBC and UA from PCP. Continue routine eye exams to monitor for hydroxychloroquine toxicity. Depending on her clinical progression will consider the addition of benlysta vs azathioprine. Follow up in 3 months or sooner as needed. Assessment & Plan (04/11/2018 9:46 AM METER INSTALLER AND REMOVER): She reports she had been doing well until approximately 2 months ago when she began to experience recurrence of rash on legs and face. She did show me picture of rash on face which did appear to be in malar distribution and she reports it will be raised at times. She also has increased joint pain in hands, wrists, feet, shoulders. Muscle ache and she gets muscle spasms at night in legs which has worsened. Also with subjective alopecia. Her Raynauds is worsened with the cold although is stable. She has minimal complaints today. Will continue hydroxychloroquine 200 mg bid. Will start zanaflex 2 mg tid prn for her myalgias and muscle spasms which are her worst complaint and see if this can help. Will obtain labs as below. Continue routine eye exams to monitor for hydroxychloroquine toxicity. Depending on her clinical progression will consider the addition of benlysta vs azathioprine. Follow up in 3 months. Assessment & Plan (12/13/2017 6:09 PM CDT): She is feeling better with the initiation of hydroxychloroquine. She has improved generalized pain and fatigue as well as sleeping patterns. She still is experiencing some photosensitivity, Raynaud's, subjective fevers, and hair thinning although overall is feeling better. She still is having some bad days although these are much improved and she has been having more good days and bad days. Continue hydroxychloroquine 200 mg b.i.d.. Continue routine eye exams to monitor for hydroxychloroquine toxicity. Obtain labs as below. Will follow-up in 4 months. Assessment & Plan (09/06/2017 9:06 AM CDT): She still has several systemic complaints concerning for lupus although it is interesting that her serology including an ELIGIO and AVISE labs were unremarkable which would make a lupus diagnosis difficult to make. Nonetheless she does have several symptoms compatible with lupus including subjective alopecia, subjective fevers, rash in a malar distribution as well as rash on the arms and legs with photosensitivity, joint pain, Raynaud's in her fingers with cold exposure, previous pleurisy, occasional nasal lesions, and fatigue. Symptoms do improve on prednisone which she has had in the past as well as recently last month prescribed for atopic dermatitis which made her feel great. Currently she has joint complaints in her shoulders, elbows, hands, and wrist with no swelling. She also has ongoing photosensitivity as well as some hair thinning which is seen on exam in her frontal scalp. She has been on hydroxychloroquine approximately 2 months now with no significant benefit. Will give this more time and continue this at 200 mg b.i.d.. If she gets no significant benefit within 6 months of being on this and repeat serology is unremarkable then may reconsider this diagnosis of lupus. Obtain labs as below. Will repeat AVISE labs next visit and possibly repeat ultrasound her right hand and wrist as well. Follow-up in 3 months. Assessment & Plan (07/06/2017 11:59 AM CDT): I am uncertain if truly has lupus as all serology unremarkable including ELIGIO and AVISE labs unremarkable. US right hand/wrist did not reveal any significant inflammatory changes. Nonetheless, clinically her symptoms do appear compatible with lupus with subjective alopecia, fevers, rash in malar distribution as well as on arms, legs with photosensitivity, joint pain, raynauds in fingers with cold exposure, previous pleurisy, occasional nasal lesions, fatigue. She does have some malar erythema on exam today and is noted symptoms improved greatly in past with prednisone 30 mg daily. Will start HCQ 200 mg bid. Pt to obtain a baseline eye exam to monitor for HCQ toxicity. If symptoms do not improve within 6 months on HCQ will recheck serology and if still negative would not pursue additional treatment. f/u 2 months. Urinary tract infection with hematuria 8 Assessment & Plan (07/06/2017 12:07 PM CDT): Has hematuria and increased urinary frequency/dysuria since this AM. Has had recurrent issues and previously followed with urology and work-up unremarkable per pt. Will start bactrim DS, 1 tab bid for 3 days. Raynaud's disease without gangrene 06/15/2017 Assessment & Plan (08/25/2024 3:02 PM CDT): Stable. Continue conservative treatment. Assessment & Plan (05/29/2024 12:40 PM METER INSTALLER AND REMOVER): Stable. Continue conservative treatment. Assessment & Plan (02/28/2024 2:42 PM METER INSTALLER AND REMOVER): Stable. Continue conservative treatment. Assessment & Plan (11/17/2023 1:11 PM CDT): Stable. Continue conservative treatment. Assessment & Plan (08/19/2023 12:35 PM CDT): Stable. Continue conservative treatment. Assessment & Plan (07/20/2023 2:34 PM CDT): Stable. Continue conservative treatment. Assessment & Plan (04/19/2023 3:53 PM METER INSTALLER AND REMOVER): Stable. Continue conservative treatment. Assessment & Plan (02/19/2023 4:13 PM METER INSTALLER AND REMOVER): Stable. Continue conservative treatment. Assessment & Plan (11/05/2022 9:02 AM CDT): Stable. Continue conservative treatment. Assessment & Plan (08/03/2022 12:56 PM CDT): Stable. Continue conservative treatment. Assessment & Plan (05/11/2022 12:32 PM METER INSTALLER AND REMOVER): Stable. Continue conservative treatment. Assessment & Plan (02/09/2022 2:25 PM METER INSTALLER AND REMOVER): Stable. Continue conservative treatment. Assessment & Plan (11/10/2021 11:31 AM CDT): Stable. Continue conservative treatment. Assessment & Plan (08/11/2021 10:16 AM CDT): Stable. Continue conservative treatment. Assessment & Plan (05/12/2021 9:33 AM METER INSTALLER AND REMOVER): Stable. Continue conservative treatment. Assessment & Plan (02/07/2021 4:01 PM CDT): Stable. Cont symptomatic treatment. Assessment & Plan (10/23/2020 3:57 PM CDT): Stable. Cont symptomatic treatment. Assessment & Plan (08/19/2020 11:17 AM CDT): Stable. Cont symptomatic treatment. Assessment & Plan (05/27/2020 10:50 AM METER INSTALLER AND REMOVER): Symptoms worsened with recent cold. Has no digital ulcers or skin breakdown. Cont symptomatic treatment. Assessment & Plan (02/19/2020 12:12 PM METER INSTALLER AND REMOVER): Symptoms stable. Has no digital ulcers or skin breakdown. Cont symptomatic treatment. Assessment & Plan (01/08/2020 8:35 AM CDT): Symptoms stable. Has no digital ulcers or skin breakdown. Cont symptomatic treatment. Assessment & Plan (10/09/2019 8:52 AM CDT): Symptoms stable. Has no digital ulcers or skin breakdown. Cont symptomatic treatment. Assessment & Plan (07/17/2019 8:37 AM CDT): Symptoms stable. Has no digital ulcers or skin breakdown. Cont symptomatic treatment. Assessment & Plan (06/07/2019 12:57 PM METER INSTALLER AND REMOVER): Symptoms stable. Has no digital ulcers or skin breakdown. Cont symptomatic treatment. Assessment & Plan (03/06/2019 12:37 PM METER INSTALLER AND REMOVER): Symptoms stable. Has no digital ulcers or skin breakdown. Cont symptomatic treatment. Assessment & Plan (01/30/2019 3:13 PM CDT): Symptoms stable. Has no digital ulcers or skin breakdown. Cont symptomatic treatment. Assessment & Plan (01/02/2019 4:08 PM CDT): Symptoms stable. Has no digital ulcers or skin breakdown. Cont symptomatic treatment. Assessment & Plan (10/05/2018 11:50 AM CDT): Symptoms stable. Has no digital ulcers or skin breakdown. Cont symptomatic treatment. Assessment & Plan (07/06/2018 1:04 PM CDT): Symptoms stable. Has no digital ulcers or skin breakdown. Cont symptomatic treatment. Assessment & Plan (07/06/2017 12:01 PM CDT): Symptoms stable. Has no digital ulcers or skin breakdown. Cont symptomatic treatment. Assessment & Plan (06/15/2017 4:35 PM CDT): Raynauds in hands/fingers. Likely secondary to an underlying autoimmune disease. Pt encouraged to keep hands warm as needed. Type 2 diabetes mellitus 04/27/2014 Hypertension 04/27/2014 Gastroesophageal reflux disease 04/27/2014 Bronchial asthma 04/27/2014 Palpitations 04/27/2014 Assessment & Plan (08/25/2024 4:53 PM CDT): She reports a h/o palpitations in 2012, work up by cardiology was apparently normal. She has recently had a recurrence of palpitations and at times her HR is increasing suddenly to 120. Denies any associated CP or SOB. Regular rate and rhythm today. Recommend that she call her PCP to evaluate this return of palpitations. Abnormal finding on thyroid function test 2014 Rash 04/27/2014 Assessment & Plan (02/09/2019 3:02 PM METER INSTALLER AND REMOVER): New flat erythematous non-blanching rash on BLE which is almost petechial in appearance as could be seen in the setting of vasculitis, will obtain ANCA, MPO, and PR3 at this time. Resolved Problems Problem Noted Date Diagnosed Date Resolved Date Positive ELIGIO (antinuclear antibody) 06/15/2017 07/06/2017 Overview (06/22/2017): KERRYSE (06/15/17): -2.3; ELIGIO neg; no other autoantibodies Has had positive ELIGIO in past several years ago per pt although I do not have for review. Has subjective alopecia, fevers, rash in malar distribution as well as on arms, legs with photosensitivity, joint pain, raynauds in fingers with cold exposure, previous pleurisy, occasional nasal lesions, fatigue. Joint pain much improved with prednisone 30 mg daily tapered to off Previous saw Dr. Rosado on 1 occasion Assessment & Plan (06/15/2017 4:19 PM CDT): Has had positive ELIGIO in past several years ago per pt although I do not have for review. Does have several systemic complaints concerning for lupus or other autoimmune CTD. Has subjective alopecia, fevers, rash in malar distribution as well as on arms, legs with photosensitivity, joint pain, raynauds in fingers with cold exposure, previous pleurisy, occasional nasal lesions, fatigue. Based on the above complaints with positive ELIGIO I am suspicious for SLE. Pt did show me pics of a malar rash as well as lesions on arms and legs. Is noted joint pain did sig improve on prednisone 30 mg daily tapered to off. Will obtain labs as below including AVISE CTD. Pending labs will likely start HCQ next visit. F/u 2 weeks. Polyarthralgia 06/15/2017 07/06/2017 Overview (06/28/2017): Generalized joint pain, improved with prednisone 30 mg daily US right hand/wrist (06/28/17): Mild synovitis with effusions, synovial thickening and power doppler. Findings limited to the long view of the wrist and radial/scaphoid joint with grade 1 effusions and grade 1 power doppler. Synovial thickening seen in the wrist, 2nd MCP joint, and 2nd and 3rd PIP joints. Assessment & Plan (06/15/2017 4:33 PM CDT): Has had joint pain essentially everywhere for several years. Hands and feet will swell on occasion. Has mild swelling bilat 2nd,3rd mcp joints on exam today. Symptoms were much improved with prednisone 30 mg daily tapered off 2 weeks ago. Appears to be an inflammatory arthritis based on history, exam and response to prednisone. Labs as below. Will obtain US right hand/wrist for further evaluation of inflammatory changes. Encounters Date Type Department Care Team Description 09/07/2024 11:25 AM CDT - 09/07/2024 11:59 PM CDT Hospital Encounter [facility] [address] [place] [phone] Systemic lupus erythematosus, unspecified SLE type, unspecified organ involvement status (HCC) Discharge Disposition: Discharge to home or self care 09/07/2024 Telephone [facility] [address] [place] [phone] Gregorio Martin MD 08/29/2024 Results Follow-Up [facility] [address] [place] [phone] Leelee Lopez PA C4 complement, CBC with auto differential, Comprehensive metabolic panel, Additional followed-up results: 5 08/25/2024 3:15 PM CDT Office Visit [facility] [address] [place] [phone] Leelee Lopez PA Systemic lupus erythematosus, unspecified SLE type, unspecified organ involvement status (HCC) (Primary Dx); Raynaud's disease without gangrene; Encounter for medication monitoring; Palpitations; Myalgia from Last 3 Months Surgical History Surgery Date Site/Laterality Comments LAPAROSCOPIC SUPRACERVICAL HYSTERECTOMY 04/05/2006 - 04/04/2007 for menorrhagia ENDOMETRIAL ABLATION SALPINGOOPHORECTOMY Right SECTION SECTION SECTION SECTION CHOLECYSTECTOMY APPENDECTOMY FL FLUORO GUIDED LUMBAR PUNCTURE 11/29/2012 Right Medical History Medical History Date Comments Anxiety disorder Anxiety - (Adde d by TW Conv) Personal history of other me ntal and behavioral disorders History of depression - (Add ed by TW Conv) Personal history of other en docrine, nutritional and metabolic disease History of hypothyro idism - (Added by TW Conv) Family History Medical History Relation Name Comments Cancer Father Family history of malignant neoplasm - (Added by TW Conv) Diabetes Father Family history of diabetes mellitus - (Added by TW Conv) Diabetes type II Father Family hist ory of type 2 diabetes mellitus - (Added by TW Conv) Heart disease Father Family history of cardiac disorder - (Added by TW Conv) Hypertension Father Family history of hypertension - (Added by TW Conv) Skin cancer Father Family history of skin cancer - (Added by TW Conv) Thyroid disease Father Family histo ry of thyroid disease - (Added by TW Conv) Breast cancer Father's Sister Diabetes Mother Family history of diabetes mellitus - (Added by TW Conv) Hypertension Mother Family history of hypertension - (Added by TW Conv) Skin cancer Mother Family history of skin cancer - (Added by TW Conv) Stroke Mother Family history of cerebrovascular accident - (Added by TW Conv) Cancer Sister Family history of malignant neoplasm - (Added by TW Conv) Ovarian cancer Neg Hx Relation Name Status Comments Father Father's Sister Mother Sister Social History Tobacco Use Types Packs/Day Years Used Date Smoking Tobacco: Never Comments No Sex and Gender Information Value Date Recorded Sex Assigned at Not on file Legal Sex Female 9:09 PM METER INSTALLER AND REMOVER Gender Identity Female 02/10/2021 1:11 PM METER INSTALLER AND REMOVER Sexual Orientation Straight 02/10/2021 1: 11 PM METER INSTALLER AND REMOVER Obstetrics History Para Term AB IAB SAB Ectopic Multiple Livin g Live Births 4 4 Date Outcome GA Total Labor Labor/2nd/3rd Weight Sex Type Anes PTL Rachael A1 A5 Name Clin Para Para Para Para Comments 03/20 Last Filed Vital Signs Vital Sign Reading Time Taken Comments Blood Pressure 136/62 08/25/2024 3:19 PM CDT Pulse 92 08/25/2024 3:19 PM CDT Temperature 36.6 C (97.9 F) 05/12/2021 8:46 AM METER INSTALLER AND REMOVER Respiratory Rate - - Oxygen Saturation 99% 08/25/2024 3:19 PM CDT Inhaled Oxygen Concentration - - Weight 84.4 kg (186 lb) 08/25/2024 3:19 PM CDT Height 167.6 cm (5' 6) 08/25/2024 3:19 PM CDT Body Mass Index 30.02 08/25/2024 3:19 PM CDT Plan of Treatment Health Maintenance Due Date Last Done Comments Albumin Creatinine Ratio, Urine 1972 Breast Cancer Screening-Mammogram 1972 Colon Cancer Screening-Colonoscopy 1972 Depression Screening 1972 Dilated Eye Exam 1972 Foot Exam 1972 DTaP/Tdap/Td Vaccine (1 - Tdap) 01/13/1983 Hepatitis B Screening 01/13/1990 Zoster Vaccine (1 of 2) 01/13/1991 Hemoglobin A1C 08/11/2014 02/11/2014, 11/30/2012 Lipid Panel 05/31/2019 05/31/2018, 11/0 12/2013, 01/11/2013, Additional history exists Pneumococcal vaccine <65 (2 of 2 - PCV) 02/13/2020 02/12/2019 Covid-19 Vaccine (3 - Modern a risk series) 10/26/2020 09/28/2020, 08/31/2020 Influenza Vaccine (#1) 2024 02/11/2019 Regular Well Visit/Exam 18-64 04/03/2025, 02/12/2023, 02/11/2022, Additional history exists eGFR 08/25/2025 08/25/2024, 02/2 07/2024, 02/28/2024, Additional history exists Hepatitis C Screening Completed 06/15/2017 Cervical Cancer Screening Discontinued 2023, 04/03/2024, 09/04/2019, Additional history exists Procedures Procedure Name Priority Date/Time Associated Diagnosis Comments US HAND COMPLETE Routine 09/07/2024 11:4 5 AM CDT Systemic lupus erythematosus, unspecified SLE type, unspecified organ involvement status (HCC) ANTI-DOUBLE STRANDED DNA ANTIBODIES Routine 08/25/2024 3:52 PM CDT Systemic lupus erythematosus, unspecified SLE type, unspecified organ involvement status (HCC) C3 COMPLEMENT Routine 08/25/2024 3:52 PM CDT Systemic lupus erythematosus, unspecified SLE type, unspecified organ involvement status (HCC) PROTEIN / CREATININE RATIO, URINE, RANDOM Routine 08/25/2024 3:52 PM CDT Systemic lupus erythematosus, unspecified SLE type, unspecified organ involvement status (HCC) CRP (ACUTE PHASE) Routine 08/25/2024 3:5 2 PM CDT Systemic lupus erythematosus, unspecified SLE type, unspecified organ involvement status (HCC) COMPREHENSIVE METABOLIC PANEL Routine 08/25/2024 3:52 PM CDT Systemic lupus erythematosus, unspecified SLE type, unspecified organ involvement status (HCC) CBC WITH AUTO DIFFERENTIAL Routine 08/25/2024 3:52 PM CDT Systemic lupus erythematosus, unspecified SLE type, unspecified organ involvement status (HCC) C4 COMPLEMENT Routine 08/25/2024 3:52 PM CDT Systemic lupus erythematosus, unspecified SLE type, unspecified organ involvement status (HCC) HIGH RISK HPV DNA DETECTION WITH GENOTYPING Routine 04/03/2024 5:02 PM METER INSTALLER AND REMOVER Well woman exam TNI WITH LIPID PANEL Routine 05/31/2018 4:33 PM METER INSTALLER AND REMOVER HEPATITIS C AB W/REFL TO HCV RNA, QN, PCR (REFL) Routine 06/15/2017 4:53 PM CDT Fatigue, unspecified type HEMOGLOBIN A1C Routine 02/11/2014 2:17 AM METER INSTALLER AND REMOVER from Last 3 Months or Most Recently Relevant to Health Maintenance Results * US Hand Complete (09/07/2024 11:45 AM CDT) Anatomical Region Laterality Modality Hand N/A Ultrasound Leelee GURROLA IMG US PROCEDURES Final R esult * Anti-double stranded DNA abs (08/25/2024 3:52 PM CDT) DNA (DS) ab <1 IU/mL [facility] Comment: IU/mL Interpretation < or = 4 Negative 5-9 Indeterminate > or = 10 Positive Blood 08/25/2024 3:52 PM CDT 08/25/2024 3:53 PM CDT Leelee GURROLA LAB BLOOD ORDERABLES Michelle l Result [facility] [address] [place] [address] * C4 complement (08/25/2024 3:52 PM CDT) Complement component C4C 17 15 - 57 mg/dL [facility] Blood 08/25/2024 3:52 PM CDT 08/25/2024 3:53 PM CDT Leelee GURROLA LAB BLOOD ORDERABLES Michelle l Result [facility] [address] [place] [address] * CBC with auto differential (08/25/2024 3:52 PM CDT) WBC 8.1 3.8 - 10.8 Thousand/u L [facility] RBC, POC 4.50 3.80 - 5.10 Million/uL [facility] Hgb 13.4 11.7 - 15.5 g/dL [facility] Hct 41.8 35.0 - 45.0 % [facility] MCV 92.9 80.0 - 100.0 fL [facility] MCH 29.8 27.0 - 33.0 pg [facility] MCHC 32.1 32.0 - 36.0 g/dL [facility] Comment: For adults, a slight decrease in the calculated MCHC value (in the range of 30 to 32 g/dL) is most likely not clinically significant; however, it should be interpreted with caution in correlation with other red cell parameters and the patient's clinical condition. Rdw 13.1 11.0 - 15.0 % [facility] Platelets 352 140 - 400 Thousand/u L [facility] MPV 10.4 7.5 - 12.5 fL [facility] Neutrophils, abs 5,670 1,500 - 7,800 cells/uL [facility] Lymphocytes, abs 1,539 850 - 3,900 cells/uL [facility] Monocyte abs 729 200 - 950 cells/uL [facility] Eosinophils, abs 89 15 - 500 cells/uL [facility] Basophils, abs 73 0 - 200 cells/uL [facility] Neutrophils 70 % [facility] Lymphocyte pct 19.0 % [facility] Monocytes 9.0 % [facility] Eosinophils 1.1 % [facility] Basophils 0.9 % [facility] Blood 08/25/2024 3:52 PM CDT 08/25/2024 3:53 PM CDT us Leelee GURROLA LAB BLOOD ORDERABLES Michelle l Result [facility] [address] [place] [phone] * Protein / creatinine ratio, urine, random (08/25/2024 3:52 PM CDT) Creatinine, ur 74 20 - 275 mg/dL [facility] Protein/creatin ine ratio 95 24 - 184 mg/g creat [facility] [facility] Protein/Creatin ine Ratio 0.095 0.024 - 0.184 mg/mg creat [facility] Protein, ur, quant 7 5 - 24 mg/dL [facility] Urine 08/25/2024 3:52 PM CDT 08/25/2024 3:53 PM CDT Jade Magnetn Specter PA LAB URINE ORDERABLES Michelle l Result Performing Organization Address [facility]/ZIP Co de Phone Number QUEST [facility] [address] [place] [address] * C3 complement (08/25/2024 3:52 PM CDT) Complement component C3C 150 83 - 193 mg/dL [facility] Blood 08/25/2024 3:52 PM CDT 08/25/2024 3:53 PM CDT [facility] LAB BLOOD ORDERABLES Michelle l Result Performing Organization Address [facility] Co de Phone Number [facility] [address] [place] [address] * CRP (acute phase) (08/25/2024 3:52 PM CDT) C-RP <3.0 <8.0 mg/L [facility] Blood 08/25/2024 3:52 PM CDT 08/25/2024 3:53 PM CDT Jade Magnetcorey Leeer PA LAB BLOOD ORDERABLES Michelle l Result Performing Organization Address [facility] Co de Phone Number [facility] [address] [place] [address] * (ABNORMAL) Comprehensive metabolic panel (08/25/2024 3:52 PM CDT) Glucose 135(H) 65 - 99 mg/dL [facility] Comment: Fasting reference interval For someone without known diabetes, a glucose value >125 mg/dL indicates that they may have diabetes and this should be confirmed with a follow-up test. BUN 13 7 - 25 mg/dL [facility] Creatinine 0.76 0.50 - 1.03 mg/dL [facility] eGFR 94 > OR = 60 mL/min/1.7 3m2 [facility] BUN/creat ratio SEE NOTE: 6 - 22 (calc) [facility] Comment: Not Reported: BUN and Creatinine are within reference range. Sodium 138 135 - 146 mmol/L [facility] Potassium, pl 4.1 3.5 - 5.3 mmol/L [facility] Chloride 100 98 - 110 mmol/L [facility] CO2 29 20 - 32 mmol/L [facility] Calcium 9.4 8.6 - 10.4 mg/dL [facility] Protein, sr 6.8 6.1 - 8.1 g/dL [facility] Albumin 4.5 3.6 - 5.1 g/dL [facility] GLOBULIN 2.3 1.9 - 3.7 g/dL (calc) [facility] Alb/glob ratio 2.0 1.0 - 2.5 (calc) [facility] Bilirubin, total 0.7 0.2 - 1.2 mg/dL [facility] Alk phos 67 37 - 153 U/L [facility] AST 32 10 - 35 U/L [facility] ALT (SGPT) 38(H) 6 - 29 U/L [facility] Blood 08/25/2024 3:52 PM CDT 08/25/2024 3:53 PM CDT Leelee GURROLA LAB BLOOD ORDERABLES Michelle l Result [facility] [employer] [facility] [address] [place] [address] * High Risk HPV DNA Detection with Genotyping (Molecular component) (04/03/2024 5:02 PM METER INSTALLER AND REMOVER) HPV HR 16 Not Detected Not Detected [facility] Comment:Testing performed by : [facility], [address] [place]., [address] HPV HR 18 Not Detected Not Detected [facility] Comment:Testing performed by : [facility], [address] [place]., [address] HPV HR Non 16/18 Not Detected Not Detected [facility] Comment: Interpretive Data Nucleic acid amplification for detection of high-risk Human Papilloma virus (HPV) is performed by the Helen Justino 6800 HPV test. This assay specifically detects HPV-16 and HPV-18 genotypes. The following HPV genotypes are detected as high-risk HPV: HPV-31, 33, 35, ,39, 45, 51, 52, 56, 58, 59, 66, and 68. This assay has been approved by the [place] Food and Drug Administration for detection of HPV in cervical specimens collected by a physician using an endocervical brush/spatula or cervical broom and placed in the ThinPrep Pap Test PreservCyt collection containers. The performance characteristics of this test have been verified by the [facility] Molecular Infectious Disease laboratory. Correlate with separately reported cytology results, as applicable. Interpretive data last revised 22 Testing performed by: [facility], [address] [place]., [address] Endocervical 04/03/2024 5:02 PM METER INSTALLER AND REMOVER 04/10/2024 9:39 AM METER INSTALLER AND REMOVER Narrative [facility] - 04/11/2024 6:52 PM METER INSTALLER AND REMOVER Clinical history and diagnosis->screening Number of vials->1 Testing type->Screening Last menstrual period (date if known)->none Jose Mejia MD LAB BODY FLUIDS AND STO OLS ORDERABLES Final Result [facility] [address] [facility] Department [place] [address] [facility] * (ABNORMAL) TNI with LIPID PANEL (05/31/2018 4:33 PM METER INSTALLER AND REMOVER) Troponin I < 0.300 0.000 - 0.300 ng/mL 05/31/2018 5:09 PM [facility] HISTORICAL RESULTS Comment: Reference using JUSTINO Chemiluminescence Negative: Repeat in 4-6 hours as indicated. Triglycerides 183(H) 0 - 149 mg/dL 05/31/2018 5:03 PM [facility] HISTORICAL RESULTS Comment: National Lipid Association/NCEP Guidelines: Normal < 150 mg/dL Borderline high 150-199 mg/dL High 200-499 mg/dL Very High >=500 mg/dL Cholesterol 150 0 - 199 mg/dL 05/31/2018 5:03 PM [facility] HISTORICAL RESULTS Comment: National Lipid Association/NCEP Guidelines: Desirable < 200 mg/dL Borderline high: 200-239 mg/dL High Risk: >=240 mg/dL HDL Cholesterol 65 mg/dL 9 5:03 PM [facility] HISTORICAL RESULTS Comment: Reference Ranges: Males: >=40 mg/dL Females: >=50 mg/dL LDL Cholesterol, Calc 48 0 - 129 mg/dL 05/31/2018 5:03 PM [facility] Comment: National Lipid Association/NCEP Guidelines: Optimal < 100 mg/dL Near Optimal 100-129 mg/dL Borderline high 130-159 mg/dL High >=160 mg/dL Cholesterol/HDL Ratio 2.3 05/31/2018 5:03 PM [facility] RES[facility] Comment: Optimal < 3.5:1 High > 5:1 05/31/2018 4:33 PM METER INSTALLER AND REMOVER 05/31/2018 4:37 PM METER INSTALLER AND REMOVER us Radha GURROLA LAB BLOOD ORDERABLES Final Re sult [facility] HISTORICAL RESULTS * HEPATITIS C AB W/REFL TO HCV RNA, QN, PCR (REFL) (06/15/2017 4:53 PM CDT) Hep C Ab NON-REACTI VE NON-REACTI VE MAE ESCOBAR SIGNAL TO CUT-OFF 0.01 <1.00 [facility] DELGADILLO - [facility] Blood specimen (specimen) 06/15/2017 4:53 PM CDT 06/15/2017 4:56 PM CDT Narrative Resulting Agency Comment Performing Organization Information: Site ID: [place] Name: Mae Conrad Address: [address] [address] Director: Jose Dash D.O., MPH Gregorio Martin MD LAB BLOOD ORDERABLES Fin al Result Performing Organization Address [facility] Co de Phone Number MAE Gil LUZ * Hemoglobin A1c (02/11/2014 2:17 AM METER INSTALLER AND REMOVER) Pathologist [facility] Hemoglobin A1c % 5.4 4.8 - 5.9 % 02/11/2014 2:44 AM METER INSTALLER AND REMOVER [facility] HISTORICAL RESULTS Comment: As of 2010 Method: HELEN Justino 6000 using turbidometric inhibition immunoassay procedure. Results obtained are comparable to results obtained using previous methodology (HPLC). [place] [employer] recommends that the goal of therapy should be an A1C hemoglobin of <7%. Reevaluate the treatment regimen in patients with an A1C >8%. 02/11/2014 2:17 AM METER INSTALLER AND REMOVER 02/11/2014 2:28 AM METER INSTALLER AND REMOVER us Ella Cunningham MD LAB BLOOD ORDERABLES Final Re sult [facility] HISTORICAL RESULTS from Last 3 Months or Most Recently Relevant to Health Maintenance Insurance [employer] [facility] [place] [address] [facility] [id number] [facility] [id number] [facility] CHOICE PLUS Care Teams Astronomy Professor Relationship Specialty Start Date End Date Mitesh Rincon MD [address] [place] [address] PCP - General Family Medicine 05/10/17 Gregorio Martin MD [address] [place] [address] Consulting Physician Rheumatology 05/10/17
--- OUTSIDE RECORDS SUMMARY | 2024-10-17 14:01 | XMS_ITS | Clinical Summary ---
Author Organization [facility] Address [address] [place] [address] Care Team Providers Care Stock Control Supervisor Name Role Phone Unavailable Primary Care Provider Unavailabl e Social History Tobacco Use Types Packs/Day Years Used Date Smoking Tobacco: Never Assessed Comments Unknown Sex and Gender Information Value Date Recorded Sex Assigned at Not on file Legal Sex Female 3:52 PM PARALEGAL INSTRUCTOR Gender Identity Not on file Sexual Orientation Not on file Plan of Treatment Health Maintenance Due Date Last Done Comments Hepatitis C Virus (HCV) Screening 1970 TdaP Immunization 1970 Hepatitis B Immunization (1 of 3 - 19+ 3-dose series) 01/13/1991 Pap Smear 01/13/1993 Cervical Cancer Screening (CCS) 01/13/2002 HPV/Cotest 01/13/2002 Colonoscopy 01/13/2017 Colorectal Cancer Screening 01/13/2017 Cologuard 01/13/2022 Immunochemical Fecal Occult Blood 01/13/2022 Mammogram 01/13/2022 Pneumococcal Immunization (5 0+ years) (1 of 1 - PCV) 01/13/2022 Zoster Immunization (1 of 2) 01/13/2022 Influenza Immunization (#1) 2023 SARS-COV-2 Immunization ( season) 2023 Respiratory Syncytial Virus (RSV) Immunization (Adult) (1 - 1-dose 75+ series) 01/13/2047 Meningococcal Immunization (ACWY) Aged Out No longer eligible based on patient's age to complete this topic Pneumococcal Immunization Combined Aged Out No longer eligible based on patient's age to complete this topic Rotavirus Immunization Aged Out No lo nger eligible based on patient's age to complete this topic
--- OUTSIDE RECORDS SUMMARY | 2024-10-17 14:01 | XMS_ITS | Encounter Summary ---
Author Organization [facility] Address [address] [place] [address] Phone Care Team Providers Care Tree Tapping Laborer Name Role Phone Mitesh Rincon MD Primary Care Provider Gregorio Martin MD Unavailable [phone] Encounter Details Date Type Department Care Team (Latest Contact Info) Description 08/29/2024 Results Follow-Up [facility] [address] [place] [address] Leelee Lopez PA [address] [place] [address] C4 complement, CBC with auto differential, Comprehensive metabolic panel, Additional followed-up results: 5 Social History Tobacco Use Types Packs/Day Years Used Date Smoking Tobacco: Never Comments No Sex and Gender Information Value Date Recorded Sex Assigned at Not on file Legal Sex Female 9:09 PM OTOLARYNGOLOGY PHYSICIAN Gender Identity Female 02/10/2021 1:11 PM OTOLARYNGOLOGY PHYSICIAN Sexual Orientation Straight 02/10/2021 1: 11 PM OTOLARYNGOLOGY PHYSICIAN documented as of this encounter Plan of Treatment Not on file documented as of this encounter Visit Diagnoses Not on filedocumented in this encounter Care Teams Tree Tapping Laborer Relationship Specialty Start Date End Date Mitesh Rincon MD [address] [facility] [address] [address] PCP - General Family Medicine 05/10/17 Gregorio Martin MD [address] [facility] [address] [place] [address] Consulting Physician Rheumatology 05/10/17 documented as of this encounter
--- OUTSIDE RECORDS SUMMARY | 2024-10-17 14:01 | XMS_ITS | Referral Summary ---
Author Organization [facility] [address] Address [facility] [place] [address] Phone Care Team Providers Care Merchandise Director Name Role Phone Mitesh Rincon MD Primary Care Provider Gregorio Martin MD Unavailable [phone] Encounters Date Type Department Care Team Description 09/07/2024 Telephone [facility] [address] [place] [phone] Gregorio Martin MD 09/07/2024 11:25 AM CDT - 09/07/2024 11:59 PM CDT Hospital Encounter [facility] [address] [place] [phone] Systemic lupus erythematosus, unspecified SLE type, unspecified organ involvement status (HCC) Discharge Disposition: Discharge to home or self care 08/29/2024 Results Follow-Up [facility] [address] [place] [phone] Leelee Lopez PA C4 complement, CBC with auto differential, Comprehensive metabolic panel, Additional followed-up results: 5 08/25/2024 3:15 PM CDT Office Visit [facility] [address] [place] [phone] Leelee Lopez PA Systemic lupus erythematosus, unspecified SLE type, unspecified organ involvement status (HCC) (Primary Dx); Raynaud's disease without gangrene; Encounter for medication monitoring; Palpitations; Myalgia from Last 3 Months Allergies Active Allergy Reactions Criticality Noted Date Comments Levofloxacin Unknown,Hives High 06/15/2017 Reaction: Hives, Nitrofurantoin Unknown Reaction: Unknown, Medications albuterol (PROVENTIL,VENTOLI N) 2.5 mg /3 mL (0.083 %) [...] mg/mL every 4 (four) hours Active omega 7-vnx-qze-fish oil 100-160-1,000 mg capsule 1,000 mg daily [...] 02/19/2020 Assessment & Plan (05/27/2020 10:49 AM LEATHER COLORER): Continues to experience intermittent locking of the [...] PT. Assessment & Plan (02/19/2020 12:11 PM LEATHER COLORER): Ongoing L shoulder pain and now with [...] hydroxychloroquine Assessment & Plan (05/29/2024 12:40 PM LEATHER COLORER): TPMT 19 Hepatitis negative 2017 Continue routine lab monitoring Maintain routine eye exams throughout the duration of taking hydroxychloroquine Assessment & Plan (02/28/2024 2:42 PM LEATHER COLORER): TPMT 19 Hepatitis negative 2018 Continue routine lab monitoring Maintain routine eye exams throughout the duration of taking hydroxychloroquine Assessment & Plan (11/17/2023 1:11 PM CDT): TPMT 19 Hepatitis negative 2017 Continue routine lab monitoring Maintain routine eye [...] hydroxychloroquine Assessment & Plan (04/19/2023 3:53 PM LEATHER COLORER): TPMT 19 Hepatitis negative 2018 Continue routine lab monitoring Maintain routine eye exams throughout the duration of taking hydroxychloroquine Assessment & Plan (02/19/2023 4:13 PM LEATHER COLORER): TPMT 19 Hepatitis negative 2018 Continue routine [...] hydroxychloroquine Assessment & Plan (05/11/2022 2:33 PM LEATHER COLORER): TPMT 19 Hepatitis negative 2018 Continue routine lab monitoring Maintain routine eye exams throughout the duration of taking hydroxychloroquine Assessment & Plan (02/09/2022 3:58 PM LEATHER COLORER): TPMT 19 Hepatitis negative 2018 Continue routine [...] hydroxychloroquine Assessment & Plan (05/09/2021 1:33 PM LEATHER COLORER): TPMT 19 Hepatitis negative 2018 Continue routine [...] hydroxychloroquine Assessment & Plan (05/24/2020 4:30 PM LEATHER COLORER): TPMT 19 Hepatitis negative 2018 Continue routine lab monitoring Maintain routine eye exams throughout the duration of taking hydroxychloroquine Assessment & Plan (02/19/2020 12:12 PM LEATHER COLORER): TPMT 19 Hepatitis negative 2018 Continue routine [...] 02/09/2019 Assessment & Plan (03/09/2019 10:39 AM LEATHER COLORER): Resolved. On prednisone taper, as above. Assessment & Plan (02/09/2019 3:00 PM LEATHER COLORER): Pt continues to report fevers at home [...] time, would like to take pt to [facility] for a more expeditious evaluation. Dr. Martin spoke with central nurse at [facility], informed of patient's name/ and attempted to [...] months. Assessment & Plan (05/29/2024 4:57 PM LEATHER COLORER): Moderate cdai, notable increased in number of [...] glucose, cataracts, glaucoma, AVN, and osteoporosis with manager terminal use. Continue hydroxychloroquine 200 mg bid and azathioprine 100 mg bid. Check labs today. Follow up in 3 months or sooner as needed should flare persist/recur. Assessment & Plan (02/28/2024 4:50 PM LEATHER COLORER): Cdai in remission. Overall remains stable. Check [...] needed. Assessment & Plan (04/20/2023 3:48 PM LEATHER COLORER): Low cdai. Repeat hand ultrasound 03/02/2023 was [...] needed. Assessment & Plan (02/19/2023 4:13 PM LEATHER COLORER): High cdai. Discussed that over the last [...] new baseline hand ultrasound, last done in 2017, and after this is completed then could [...] glucose, cataracts, glaucoma, AVN, and osteoporosis with manager terminal use. However, if she flares again in the next few months, then will need to escalate treatment which she understands. Otherwise for now will continue azathioprine 100 mg qAM and 50 mg qPM and hydroxychloroquine 200 mg bid. Labs today as below. Plan for follow up in 3 months or sooner as needed. Assessment & Plan (05/11/2022 2:33 PM LEATHER COLORER): Cdai = 13. Slight increase in symptoms [...] needed. Assessment & Plan (02/09/2022 3:58 PM LEATHER COLORER): cdai = 27 Appears to be having [...] needed. Assessment & Plan (05/12/2021 9:32 AM LEATHER COLORER): Low cdai. Overall feels improved and stable since last visit. Will continue azathioprine 100 mg qAM and 50 mg qPM and hydroxychloroquine 200 mg bid. Labs today as below. Maintain routine eye exams. Plan for follow up in 3 months or sooner as needed. Assessment & Plan (02/10/2021 9:24 AM LEATHER COLORER): High cdai. Pt reports flare and states that she is 'barely managing' currently and is concerned about being able to function at work. Due to burden of disease will give patient a triamcinolone injection. Patient made aware of SE of steroids including but not limited to HTN, increased blood glucose, cataracts, glaucoma, AVN, and osteoporosis with manager terminal use. Will continue azathioprine 100 mg qAM [...] needed. Assessment & Plan (05/27/2020 10:50 AM LEATHER COLORER): Low cdai. Will continue azathioprine 100 mg qAM and 50 mg qPM and hydroxychloroquine 200 mg bid. Up to date on labs. Maintain routine eye exams - has appt this week. Plan for follow up in 3 months or sooner as needed. Assessment & Plan (02/19/2020 12:12 PM LEATHER COLORER): Low cdai. Will continue azathioprine 100 mg [...] glucose, cataracts, glaucoma, AVN, and osteoporosis with manager terminal use. At baseline fells well controlled with [...] needed. Assessment & Plan (03/09/2019 10:42 AM LEATHER COLORER): Tolerating the addition of azathioprine without complaint. [...] needed. Assessment & Plan (02/09/2019 3:01 PM LEATHER COLORER): Tolerating the addition of azathioprine without complaint. [...] above. Assessment & Plan (02/06/2019 9:47 AM LEATHER COLORER): Tolerating the addition of azathioprine without complaint. [...] HTN, increase blood glucose and osteopenia with senior living use of steroids. Will obtain labs as [...] needed. Assessment & Plan (04/11/2018 9:46 AM LEATHER COLORER): She reports she had been doing well [...] treatment. Assessment & Plan (05/29/2024 12:40 PM LEATHER COLORER): Stable. Continue conservative treatment. Assessment & Plan (02/28/2024 2:42 PM LEATHER COLORER): Stable. Continue conservative treatment. Assessment & Plan (11/17/2023 1:11 PM CDT): Stable. Continue conservative treatment. Assessment & Plan (08/19/2023 12:35 PM CDT): Stable. Continue conservative treatment. Assessment & Plan (07/20/2023 2:34 PM CDT): Stable. Continue conservative treatment. Assessment & Plan (04/19/2023 3:53 PM LEATHER COLORER): Stable. Continue conservative treatment. Assessment & Plan (02/19/2023 4:13 PM LEATHER COLORER): Stable. Continue conservative treatment. Assessment & Plan (11/05/2022 9:02 AM CDT): Stable. Continue conservative treatment. Assessment & Plan (08/03/2022 12:56 PM CDT): Stable. Continue conservative treatment. Assessment & Plan (05/11/2022 12:32 PM LEATHER COLORER): Stable. Continue conservative treatment. Assessment & Plan (02/09/2022 2:25 PM LEATHER COLORER): Stable. Continue conservative treatment. Assessment & Plan (11/10/2021 11:31 AM CDT): Stable. Continue conservative treatment. Assessment & Plan (08/11/2021 10:16 AM CDT): Stable. Continue conservative treatment. Assessment & Plan (05/12/2021 9:33 AM LEATHER COLORER): Stable. Continue conservative treatment. Assessment & Plan (02/07/2021 4:01 PM CDT): Stable. Cont symptomatic treatment. Assessment & Plan (10/23/2020 3:57 PM CDT): Stable. Cont symptomatic treatment. Assessment & Plan (08/19/2020 11:17 AM CDT): Stable. Cont symptomatic treatment. Assessment & Plan (05/27/2020 10:50 AM LEATHER COLORER): Symptoms worsened with recent cold. Has no digital ulcers or skin breakdown. Cont symptomatic treatment. Assessment & Plan (02/19/2020 12:12 PM LEATHER COLORER): Symptoms stable. Has no digital ulcers or [...] treatment. Assessment & Plan (06/07/2019 12:57 PM LEATHER COLORER): Symptoms stable. Has no digital ulcers or skin breakdown. Cont symptomatic treatment. Assessment & Plan (03/06/2019 12:37 PM LEATHER COLORER): Symptoms stable. Has no digital ulcers or [...] 04/27/2014 Assessment & Plan (02/09/2019 3:02 PM LEATHER COLORER): New flat erythematous non-blanching rash on BLE which is almost petechial in appearance as could be seen in the setting of vasculitis, will obtain ANCA, MPO, and PR3 at this time. Resolved Problems Problem Noted Date Diagnosed Date Resolved Date Positive ELIGIO (antinuclear antibody) 06/15/2017 07/06/2017 Overview (06/22/2017): AVISE (06/15/17): -2.3; ELIGIO neg; no other [...] Based on the above complaints with positive ELIIGO I am suspicious for SLE. Pt did [...] hand/wrist for further evaluation of inflammatory changes. Social History Tobacco Use Types Packs/Day Years Used Date Smoking Tobacco: Never Comments No Sex and Gender Information Value Date Recorded Sex Assigned at Not on file Legal Sex Female 9:09 PM LEATHER COLORER Gender Identity Female 02/10/2021 1:11 PM LEATHER COLORER Sexual Orientation Straight 02/10/2021 1: 11 PM LEATHER COLORER Last Filed Vital Signs Vital Sign Reading Time Taken Comments Blood Pressure 136/62 08/25/2024 3:19 PM CDT Pulse 92 08/25/2024 3:19 PM CDT Temperature 36.6 C (97.9 F) 05/12/2021 8:46 AM LEATHER COLORER Respiratory Rate - - Oxygen Saturation 99% 08/25/2024 3:19 PM CDT Inhaled Oxygen Concentration - - Weight 84.4 kg (186 lb) 08/25/2024 3:19 PM CDT Height 167.6 cm (5' 6) 08/25/2024 3:19 PM CDT Body Mass Index 30.02 08/25/2024 3:19 PM CDT Plan of Treatment Not on file Procedures Procedure Name Priority Date/Time Associated Diagnosis [...] DETECTION WITH GENOTYPING Routine 04/03/2024 5:02 PM LEATHER COLORER Well woman exam TNI WITH LIPID PANEL Routine 05/31/2018 4:33 PM LEATHER COLORER HEPATITIS C AB W/REFL TO HCV RNA, QN, PCR (REFL) Routine 06/15/2017 4:53 PM CDT Fatigue, unspecified type HEMOGLOBIN A1C Routine 02/11/2014 2:17 AM LEATHER COLORER from Last 3 Months or Most Recently Relevant to Health Maintenance Results * US Hand Complete (09/07/2024 11:45 AM CDT) Anatomical Region Laterality Modality Hand N/A Ultrasound us Leeleesusan [facility] IMG US PROCEDURES Final R esult * Anti-double stranded DNA abs (08/25/2024 3:52 PM CDT) DNA (DS) ab <1 IU/mL [facility] Comment: IU/mL Interpretation < or = 4 Negative 5-9 Indeterminate > or = 10 Positive Blood 08/25/2024 3:52 PM CDT 08/25/2024 3:53 PM CDT [facility] LAB BLOOD ORDERABLES Michelle l Result Performing Organization Address [facility] de Phone Number [facility] [address] [place] [address] * C4 complement (08/25/2024 3:52 PM CDT) Pathologist [facility] Complement component C4C 17 15 - 57 mg/dL [facility] Blood 08/25/2024 3:52 PM CDT 08/25/2024 3:53 PM CDT [facility] LAB BLOOD ORDERABLES Michelle l Result Performing Organization Address [facility] de Phone Number [facility] [address] [place] [address] * CBC with auto differential (08/25/2024 3:52 PM CDT) Pathologist [facility] WBC 8.1 3.8 - 10.8 Thousand/u L [...] [facility] LAB BLOOD ORDERABLES Michelle l Result Performing Organization Address [facility] Co de Phone Number [facility] [address] [place] [address] * Protein / creatinine ratio, urine, random (08/25/2024 3:52 PM CDT) Pathologist [facility] Creatinine, ur 74 20 - 275 mg/dL [facility] Protein/creatin ine ratio 95 24 - 184 mg/g creat [facility] Protein/Creatin ine Ratio 0.095 0.024 - 0.184 mg/mg creat [facility] Protein, ur, quant 7 5 - 24 mg/dL [facility] Urine 08/25/2024 3:52 PM CDT 08/25/2024 3:53 PM CDT Leelee [facility] LAB URINE ORDERABLES Michelle l Result Performing Organization Address [facility] Co de Phone Number [facility] [address] [place] [address] * C3 complement (08/25/2024 3:52 PM CDT) Pathologist [facility] Complement component C3C 150 83 - 193 mg/dL [facility] Blood 08/25/2024 3:52 PM CDT 08/25/2024 3:53 PM CDT [facility] LAB BLOOD ORDERABLES Michelle l Result Performing Organization Address [facility] Co de Phone Number [facility] [address] [place] [address] * CRP (acute phase) (08/25/2024 3:52 PM CDT) Pathologist [facility] C-RP <3.0 <8.0 mg/L [facility] Blood 08/25/2024 3:52 PM CDT 08/25/2024 3:53 PM CDT [facility] Ruma [facility] LAB BLOOD ORDERABLES Michelle l Result Performing Organization Address [facility] de Phone Number [facility] [address] [place] [address] * (ABNORMAL) Comprehensive metabolic panel (08/25/2024 3:52 PM CDT) Pathologist [facility] Glucose 135(H) 65 - 99 mg/dL [facility] [...] CDT Leelee [facility] LAB BLOOD ORDERABLES Michelle skinner Result [facility] [address] [place] [address] * High Risk HPV DNA Detection with Genotyping (Molecular component) (04/03/2024 5:02 PM LEATHER COLORER) HPV HR 16 Not Detected Not Detected [facility] Comment:Testing performed by : [facility], [address] [facility]., [address] HPV HR 18 Not Detected Not Detected [facility] Comment:Testing performed by : [facility], [address] [facility]., [address] HPV HR Non 16/18 Not Detected Not [...] this test have been verified by the [facility] Molecular Infectious Disease laboratory. Correlate with separately reported cytology results, as applicable. Interpretive data last revised 22 Testing performed by: [facility], [address] [place]., [address] Endocervical 04/03/2024 5:02 PM LEATHER COLORER 04/10/2024 9:39 AM LEATHER COLORER Narrative [facility] - 04/11/2024 6:52 PM LEATHER COLORER Clinical history and diagnosis->screening Number of vials->1 Testing type->Screening Last menstrual period (date if known)->none Jose Mejia MD LAB BODY FLUIDS AND STO OLS ORDERABLES Final Result [facility] [address] [facility] Department [place] [address] [facility] * (ABNORMAL) TNI with LIPID PANEL (05/31/2018 4:33 PM LEATHER COLORER) Troponin I < 0.300 0.000 - 0.300 ng/mL Comment: Reference using JUSTINO Chemiluminescence Negative: Repeat in 4-6 hours as indicated. Triglycerides 183(H) 0 - 149 mg/dL Comment: National Lipid Association/NCEP Guidelines: Normal < 150 mg/dL Borderline high 150-199 mg/dL High 200-499 mg/dL Very High >=500 mg/dL Cholesterol 150 0 - 199 mg/dL Comment: National Lipid Association/NCEP Guidelines: Desirable < 200 mg/dL Borderline high: 200-239 mg/dL High Risk: >=240 mg/dL HDL Cholesterol 65 mg/dL 9 5:03 PM [facility] HISTORICAL RESULTS Comment: Reference Ranges: Males: >=40 mg/dL Females: >=50 mg/dL LDL Cholesterol, Calc 48 0 - 129 mg/dL Comment: National Lipid Association/NCEP Guidelines: Optimal < 100 mg/dL Near Optimal 100-129 mg/dL Borderline high 130-159 mg/dL High >=160 mg/dL Cholesterol/HDL Ratio 2.3 Comment: Optimal < 3.5:1 High > 5:1 05/31/2018 4:33 PM LEATHER COLORER 05/31/2018 4:37 PM LEATHER COLORER us Radha [facility] LAB BLOOD ORDERABLES Final Re sult [facility] HISTORICAL RESULTS * HEPATITIS C AB W/REFL TO HCV RNA, QN, PCR (REFL) (06/15/2017 4:53 PM CDT) Hep C Ab NON-REACTI VE NON-REACTI VE [facility] [place] SIGNAL TO CUT-OFF 0.01 <1.00 [facility] [place] Blood specimen (specimen) 06/15/2017 4:53 PM CDT 06/15/2017 4:56 PM CDT Narrative Resulting Agency Comment Performing Organization Information: Site ID: [place] Name: [email or web address] Address: [address] [place] [address] Director: Jose Dash D.O., MPH us Gregorio Martin MD LAB BLOOD ORDERABLES Fin al Result [facility] [place] * Hemoglobin A1c (02/11/2014 2:17 AM LEATHER COLORER) Hemoglobin A1c % 5.4 4.8 - 5.9 % 02/11/2014 2:44 AM LEATHER COLORER [facility] HISTORICAL RESULTS Comment: As of 2010 Method: HELEN Justino 6000 using turbidometric inhibition immunoassay procedure. Results obtained are comparable to results obtained using previous methodology (HPLC). [place] [employer] recommends that the goal of therapy should be an A1C hemoglobin of <7%. Reevaluate the treatment regimen in patients with an A1C >8%. 02/11/2014 2:17 AM LEATHER COLORER 02/11/2014 2:28 AM LEATHER COLORER us Ella Cunningham MD LAB BLOOD ORDERABLES Final Re sult [facility] HISTORICAL RESULTS from Last 3 Months or Most Recently Relevant to Health Maintenance Insurance [employer] OPEN ACCESS [facility] CHOICE [facility]US [facility] HMO/PPO Address: [address] [address] [place] [address] [facility] [address] [facility] [id number] [facility] CHOICE PLUS [facility] HMO/PPO Address: [address] [address] [place] [address] Care Teams Merchandise Director Relationship Specialty Start Date End Date Mitesh Rincon MD [address] [place] [address] PCP - General Family Medicine 05/10/17 Gregorio Martin MD [address] [place] [address] Consulting Physician Rheumatology 05/10/17
--- NOTE | 2024-11-01 12:12 | WPDHOLTEREM ---
Holter/Event Monitor Holter/Event Monitor Date of procedure: 10/17/24 Holter/Event Procedure: 3-7 Day Holter Monitor Indications: Palpitations Conclusion: 1. 3 days holter monitor on 10/17/24. 2. Underlying rhythm is sinus rhythm. HR range 64-115 bpm; average HR 80 bpm. 3. There are rare premature supraventricular complexes. No supraventricular tachycardia. 4. There are rare premature ventricular complexes. No ventricular tachycardia. 5. No significant pauses greater than 3 seconds. 6. Patient reports 7 episodes of symptoms of chest tightness, heart flip flopped, heart racing, chest pressure, irregular beats which demonstrate sinus rhythm, HR range 74-95 bpm.
== END 2024-10-17 13:55 | disposition home or self-care (01) ==
LOC: ANHCARD 13:56
PROVIDERS: PCP Family Medicine; Visit Provider Student in an Organized Health Care Education/Training Program
DX: R00.2 Palpitations (principal); I49.1 Atrial premature depolarization; I49.3 Ventricular premature depolarization
CPT/HCPCS: 93242

== ENCOUNTER 2025-03-12 16:48 | Emergency (ER) | payer OTHER, SELFPAY ==
[2025-03-12 16:55] VITALS: BP 158/69; PULSE 72; RESP 16; TEMP 36.4; O2SAT 100
--- NOTE | 2025-03-12 17:56 | ED.EAR ---
HPI - Ear Problem General Chief complaint: Ear Stated complaint: right side of face hurt Time Seen by Provider: 03/12/25 17:25 Source: patient, RN notes reviewed and old records reviewed Mode of arrival: ambulatory Limitations: no limitations History of Present Illness HPI Narrative: 55 year old female with complaints of right ear pain and right side of face discomfort and some right neck discomfort verbalized for one week duration. Patient reports that last week she had some sinus congestion and sniffles which have resolved, reports some cough,no sore throat, body aches or any GI symptoms. Patient has been taking Ibuprofen for her symptoms without resolution.Patient does have history of Lupus and is on hydroxychloroquine. MD Complaint: ear pain and other (right facial pain) Location: right ear Duration: constant Severity: mild Discharge from ear: Reports no Treatment prior to arrival: oral analgesic (Ibuprofen) Related Data Home Medications ?Medication ?Instructions ?Recorded ?Confirmed ?Last Taken ?Type hydroxychloroquine 200 mg tablet 200 mg PO BID 06/19/19 03/12/25 Unknown History azathioprine 50 mg tablet 50 mg PO BID 10/05/23 02/19/25 Unknown History Allergies Allergy/AdvReac Type Severity Reaction Status Date / Time levofloxacin Allergy Intermediate Hives Verified 03/12/25 17:12 nitrofurantoin Allergy Intermediate Rash Verified 03/12/25 17:12 Review of Systems Review of Systems: CONSTITUTIONAL: Reports malaise, no chills, sweats, or fever. EYES: Denies visual changes, redness, or discharge. ENT: Reports rhinorrhea, congestion, right sided sinus pain,right otalgia and no sore throat. CARDIOVASCULAR: Denies chest pain, palpitations, or edema. RESPIRATORY: Reports some cough .? Denies dyspnea. GASTROINTESTINAL: Denies abdominal pain, nausea, vomiting, diarrhea SKIN: Denies rash or itching. MUSCULOSKELETAL: Denies myalgia. NEUROLOGIC: Denies headache. All systems reviewed & are unremarkable except as noted in HPI and below PMFSH Past Medical History Medical History (Updated 03/14/25 @ 08:16 by Kaylyn Perez APRN) GERD (gastroesophageal reflux disease) Type 2 diabetes mellitus without complication, without long-term current use of insulin Systemic lupus erythematosus Essential hypertension Mild intermittent asthma without complication Depression Obesity Surgical History Surgical History (Updated 03/14/25 @ 08:08 by Kaylyn Perez APRN) History of cholecystectomy H/O: hysterectomy History of appendectomy Family History Family History Father Diabetes mellitus Hypertension Family history of coronary artery disease Mother Diabetes mellitus Social History Social History Social History: Spouse Smoking status: Never smoker Second hand tobacco smoke exposure: No Alcohol intake: current Alcohol use details: rarely Substance use: never Substance use type: does not use Lack of Transportation: No Lack of Food: Never True Current Housing: I Have Housing Concerned About Future Housing: No Difficulty Paying Gas/Electric Bills: No Difficulty Paying for Meds: No Currently Unemployed: No Education: Don't Know Difficulty w/ Childcare or Family Care: No Living arrangements: with family Occupation/Education: occupation Gender identity (if verbalized by the patient): Female Sexual Orientation (if Verbalized by the Patient): Straight or Heterosexual Spiritual care concerns: No Comments At time of signature, agree with nursing past medical, surgical, social and family history. There is no relevant family history pertinent to the presenting complaint Exam Narrative: GENERAL: Well-appearing, well-nourished, and in no acute distress. HEAD: Normocephalic EYES: PERRLA, conjunctivae clear ENT: Nares clear, turbinates edematous and erythematous, clear to pale yellow discharge, right sided facial pain. Mucous membranes moist.Right TM red, Left TM pearly ash with dull light reflex; no tragal tenderness. Oropharynx erythematous without lesions. Tonsils not enlarged and without exudate, no drooling, no hoarseness, no trismus, uvula midline.post nasal drainage noted. NECK: Supple. No lymphadenopathy CHEST: Clear to auscultation, breath sounds equal. No wheezing, rhonchi, rales, or stridor. No respiratory distress, speaks in full sentences.occasional cough noted SAO2 100% on room air HEART: Regular rate and rhythm. No murmur heard. SKIN: Warm, dry, no rash. NEURO: Alert and oriented x3. PSYCH: Normal mood and affect Course Course Level of Care: Express Care Visit Vital Signs Vital signs: Vital Signs Temperature 36.4 C L 03/12/25 16:55 Pulse Rate 72 03/12/25 16:55 Respiratory Rate 16 03/12/25 16:55 Blood Pressure 158/69 H 03/12/25 16:55 Pulse Oximetry 100 03/12/25 16:55 Oxygen Delivery Room Air 03/12/25 16:55 Temperature 36.4 C L 03/12/25 16:55 Pulse Rate 72 03/12/25 16:55 Respiratory Rate 16 03/12/25 16:55 Blood Pressure 158/69 H 03/12/25 16:55 Pulse Oximetry 100 03/12/25 16:55 Oxygen Delivery Room Air 03/12/25 16:55 MDM MDM Narrative Medical decision making narrative: Patient with otitis media to right ear with sinus congestion and drainage and facial discomfort will treat with antibiotic. steroid and patient to use inhaler as needed and supportive medications of antihistamine and Coricidin decongestant recommended with Tylenol or Ibuprofen for fevers and pain. Anticipatory guidance and reasons to seek care in ED reviewed with patient with understanding voiced Differential Diagnosis Differential Diagnosis: Differential diagnostic considerations for upper respiratory infection include upper respiratory infection, croup, otitis media, sinusitis, viral infection, bronchitis, influenza, pharyngitis, strep, uvulitis.? Critical Care Time Critical Care Time Critical Care Time: No Discharge Plan Discharge Clinical Impression: Acute right otitis media Sinusitis Qualifiers: Sinusitis location: pansinusitis Chronicity: acute Recurrence: non-recurrent Qualified Code(s): J01.40 - Acute pansinusitis, unspecified Patient Disposition: Home Condition: Stable Instructions: Antibiotic Form, Sinusitis (ED), Ear Infection (GEN) Additional Instructions: Increase fluids especially juices and water [id number] cough and cold medicine of your choice for your symptoms Zyrtec Claritin or Alysha daily include Coricidin brand decongestant due to elevation of blood pressure Steroids as directed--take with food heat to the face 20-30 minutes 4-6 times a day for pain Salt water gargles, throat lozenges or throat sprays as desired Antibiotic as directed--finished the medication If your symptoms persist, change or worsen significantly before you can contact your personal physician then please, without delay, go to the emergency department for further evaluation. Follow-up with PCP in 7-10 days or sooner if needed Follow up with PCP soon in regards to your blood pressure which is elevated above threshold for referral. Blood pressure above 120/80 may indicate pre-hypertension. 158/69 inhaler/ nebulizer as prescribed Patient Language: Nepali Prescriptions: New amoxicillin-pot clavulanate 875-125 mg tablet 1 tablet PO Q12H Qty: 20 0RF Rx Instructions: take with food. Take with probiotic or eat activia yogurt while taking this medication prednisone 20 mg tablet 40 mg PO DAILY 5 Days Qty: 10 0RF No Action (DME) pen needle, diabetic [BD Ultra-Fine Orig Pen Needle] 29 gauge x 1/2 needle See Rx Instructions .Route Qty: 100 0RF Rx Instructions: inject weekly escitalopram oxalate [Lexapro] 10 mg tablet 20 mg PO DAILY Qty: 60 2RF hydroxychloroquine 200 mg tablet 200 mg PO BID azathioprine 50 mg tablet 50 mg PO BID Rx Instructions: 100mg in AM; 100mg PM (DME) blood-glucose meter Misc See Rx Instructions miscellaneous .MEDSUPPLY Qty: 1 0RF Rx Instructions: As directed to test blood sugar daily (DME) Blood Glucose Test Strip See Rx Instructions .MEDSUPPLY Qty: 100 5RF Rx Instructions: As directed to check blood sugar once daily (DME) lancets Misc See Rx Instructions .MEDSUPPLY Qty: 200 5RF Rx Instructions: As directed to check blood sugar once daily fluticasone propionate 50 mcg/actuation spray,suspension 1 spray NASAL DAILY Qty: 18.2 5RF Rx Instructions: administer into each nostril fluconazole 150 mg tablet 150 mg PO ONCE Qty: 2 0RF Rx Instructions: Take 1 tablet as single dose once. May repeat in 72 hours if symptoms persist. Do not take with Ondansetron. albuterol sulfate 90 mcg/actuation aerosol powdr breath activated 1 inh inhalation Q4-6H PRN (Reason: shortness of breath or wheezing) Qty: 90 4RF albuterol sulfate 2.5 mg /3 mL (0.083 %) solution for nebulization See Rx Instructions .ROUTE .COMPLEX Qty: 180 2RF Dose Instruction: USE 3 ML IN NEBULIZER EVERY 6 HOURS NEEDED FOR SHORTNESS OF BREATH OR WHEEZING Rx Instructions: USE 3 ML IN NEBULIZER EVERY 6 HOURS NEEDED FOR SHORTNESS OF BREATH OR WHEEZING albuterol sulfate 90 mcg/actuation HFA aerosol inhaler See Rx Instructions .ROUTE .COMPLEX Qty: 17 1RF Dose Instruction: USE 2 INHALATIONS ORALLY EVERY 4 HOURS NEEDED FORSHORTNESS OF BREATH OR WHEEZING Rx Instructions: USE 2 INHALATIONS ORALLY EVERY 4 HOURS NEEDED FORSHORTNESS OF BREATH OR WHEEZING losartan 25 mg tablet 12.5 mg PO DAILY Qty: 45 2RF pantoprazole 40 mg tablet,delayed release (DR/EC) 40 mg PO DAILY Qty: 100 1RF Rx Instructions: TAKE 1 TABLET BY MOUTH ONCE DAILY IN THE MORNING ondansetron 8 mg tablet,disintegrating See Rx Instructions .ROUTE .COMPLEX Qty: 18 0RF Dose Instruction: DISSOLVE 1 TABLET IN MOUTH EVERY 8 HOURS NEEDED FOR NAUSEA AND VOMITING Rx Instructions: DISSOLVE 1 TABLET IN MOUTH EVERY 8 HOURS NEEDED FOR NAUSEA AND VOMITING pregabalin 25 mg capsule 25 mg PO TID Qty: 90 0RF montelukast 10 mg tablet 10 mg PO QPM Qty: 90 3RF semaglutide 2 mg/dose (8 mg/3 mL) pen injector 2 mg subcut WEEKLY Qty: 9 4RF Follow-up/Referrals: Mitesh Rincon MD [Primary Care Provider, [facility]] Time of Disposition: 18:02
== END 2025-03-12 18:13 | disposition home or self-care (01) ==
PROVIDERS: Emergency Provider Registered Nurse; PCP Family Medicine
DX: H66.91 Otitis media, unspecified, right ear (principal); J01.40 Acute pansinusitis, unspecified; E11.9 Type 2 diabetes mellitus without complications; Z79.85 Long-term (current) use of injectable non-insulin antidiabetic drugs; K21.9 Gastro-esophageal reflux disease without esophagitis; M32.9 Systemic lupus erythematosus, unspecified; I10 Essential (primary) hypertension; E66.9 Obesity, unspecified; Z68.29 Body mass index [BMI] 29.0-29.9, adult; F32.A Depression, unspecified
CPT/HCPCS: 99213; G0463